=== PATIENT | female | born 1985 | race African-American/Black ===

== ENCOUNTER 2018-01-10 22:06 | Inpatient (IN) | payer OTHER ==
--- NOTE | 2018-01-10 22:15 | PDOC ---
History of Present Illness - General Chief Complaint: Asthma Stated Complaint: ASTHMA Time Seen by Provider: 01/10/18 22:11 - History of Present Illness Initial Comments: 32-year-old female with past medical history of asthma and well-controlled seizures presenting with shortness of breath. Patient reports that she was feeling dyspneic throughout the day, used her albuterol inhaler with minimal relief, and presented to the ED. Patient states that she has had multiple hospitalizations because of her asthma exacerbations and has been intubated once. Her last hospitalization for an asthma exacerbation was earlier this year where she spent one month in the hospital including nine days in the ICU. Patient states that she believes this asthma exacerbation feels worse than her usual ones, but not as bad as her worst. She usually gets allergy shots twice a month, but has not done so recently. Last seizure was more than five years ago. Patient denies fevers, chills, chest pain, or abdominal pain. Past History - Past Medical History Allergies/Adverse Reactions: Allergies Allergy/AdvReac Type Severity Reaction Status Date / Time Penicillins Allergy Verified 01/10/18 22:43 Home Medications: Ambulatory Orders Albuterol Sulfate Inhaler - [Ventolin Hfa Inhaler -] 1 - 2 inh PO Q4H 01/11/18 Budesonide/Formeterol Fumarate [SYMBICORT 80/4.5mcg -] 1 inh PO BID 01/11/18 Fluticasone Prop 0.05% Nasal [Flonase -] 1 - 2 spray NS DAILY 01/11/18 Omeprazole 20 mg PO DAILY 01/11/18 Tiotropium [place] [Spiriva Respimat] 4 gm IH DAILY 01/11/18 Review of Systems - Review of Systems Comments:: Constitutional: no fever, no chills HEENT: no throat pain, no dysphagia Cardiovascular: no chest pain, no palpitations Respiratory: no cough, +shortness of breath Gastrointestinal: no abdominal pain, no nausea, no vomiting Genitourinary: no dysuria, no frequency Musculoskeletal: no myalgia, no arthralgia Skin: no rash, no itching Neurologic: no headache, no dizziness *Physical Exam - Physical Exam Comments: General: Awake, alert, and fully oriented Head: No signs of trauma Eyes: EOMI, sclera anicteric ENT: Moist mucus membranes Neck: Normal ROM, supple Lungs: Diffuse wheezes present bilaterally; patient unable to complete full sentences without gasping for breath Cardio: Regular rhythm, S1 and S2 present Abdomen: Soft, nontender. No guarding, no rebound, no masses Extremities: Normal range of motion, Distal pulses present SKIN: Warm, Dry, normal turgor Neurologic: Cranial nerves II through XII grossly intact. Normal speech ED Treatment Course - LABORATORY CBC & Chemistry Diagram: 01/10/18 23:05 01/10/18 23:05 Medical Decision Making - Medical Decision Making 32-year-old female with past medical history of asthma and well-controlled seizures presenting with shortness of breath. -duonebs -steroids -labs 01/10/18 22:57 Patient with increased work of breathing, worsening into respiratory distress. Moved to room 10. Given racemic epi, salumedrol, mag, terbutaline Respiratory called to place the patient on bipap 01/10/18 23:49 Patient on bipap, at first appeared more comfortable, but now weakened from work of breathing 01/11/18 01:42 Discussed with patient the benefits and risks of intubation; patient voiced understanding that intubation may be a possibility and is amenable if it becomes necessary 01/11/18 02:20 Microblogged hospitalist who recommended admission to the ICU 01/11/18 02:43 Dr. Childers discussed case with ICU who accepted patient for admission *DC/Admit/Observation/Transfer Diagnosis at time of Disposition: Asthma exacerbation Qualifiers: Asthma severity: moderate Asthma persistence: persistent Qualified Code(s): J45.41 - Moderate persistent asthma with (acute) exacerbation - Discharge Dispostion Condition at time of disposition: Guarded Decision to Admit order: Yes - Referrals - Patient Instructions - Post Discharge Activity
[2018-01-10] MEDS ORDERED: ALBUTEROL SO4 2.5/IPRATROPIUM 0.5 INH SOL 3 ML VIAL.NEB. NEB ONE ×3 (22:28→23:40)
--- NOTE | 2018-01-10 22:32 | PDOC ---
Attending Attestation - HPI HPI: 01/10/18 23:29 The patient is a 32 year old female with a significant PMH of asthma (intubated in the past) who presents to the emergency department with shortness of breath since earlier today . the patient reports that she was at home today when she felt an onset of shortness of breath secondary to an asthma exacerbation . she states that she has had episodes like this in the past and has been hospitalized. The patient states that she has been taking her albuterol inhaler and treatments at home with no apparent relief. She states that she has some trigger such as allergies but is unaware of what brought on her episode today. The patient denies any other symptoms. She denies any fever, chills, nausea, vomiting, diarrhea, constipation, or any urinary symptoms. She denies any chest pain, headache or dizziness. The patient denies any other complaints . PCP: Dr. Powers Documentation prepared by Aneesh Puentes, acting as medical office technologist for Ade Childers MD. - Physicial Exam PE: 01/10/18 23:49 GENERAL: (+)unable to speak in full sentences secondary to condition. Awake, alert, and fully oriented, in no acute distress HEAD: No signs of trauma EYES: PERRLA, EOMI, sclera anicteric, conjunctiva clear ENT: Auricles normal inspection, hearing grossly normal, nares patent, oropharynx clear without exudates. Moist mucosa NECK: Normal ROM, supple, no lymphadenopathy, JVD, or masses LUNGS: (+)diffuse bilateral wheezing , extremely tight. No crackles. HEART: Regular rate and rhythm, normal S1 and S2, no murmurs, rubs or gallops ABDOMEN: Soft, nontender, normoactive bowel sounds. No guarding, no rebound. No masses EXTREMITIES: Normal range of motion, no edema. No clubbing or cyanosis. No cords, erythema, or tenderness NEUROLOGICAL: Cranial nerves II through XII grossly intact. Normal speech, normal gait SKIN: Warm, Dry, normal turgor, no rashes or lesions noted. Documentation prepared by Aneesh Puentes, acting as medical office technologist for Ade Childers MD. <Aneesh Puentes - Last Filed: 01/10/18 23:49> - Resident Resident Name: Shaye Butler - ED Attending Attestation I have performed the following: I have examined & evaluated the patient, The case was reviewed & discussed with the resident, I agree w/resident's findings & plan - Medical Decision Making 01/11/18 01:55 Pt is very slow to improve. She was given 3 duonebs in the ER as well as 60 PO prednisone, and suddnely she became worse. We moved her to room 10 and gave her racemic epi, as well as another duoneb. She received 2 mg Mag sulfate, terbutaline 0.25 SQ (which was repeated 1 hr later) And pt received 125mg solumedrol. BiPAP was placed. Pt is still very tight. Family has no idea what makes her asthma worse. Pt states that she gets allergy shots every 2 weeks and that she missed a dose of shots. 01/11/18 02:02 lungs are still very tight 01/11/18 03:35 Pt admitted to the hospitalists; pt will be admitted to the ICU, as she is tight and she is on BiPAP, and they want to keep a close eye on her. <Ade Childers - Last Filed: 01/11/18 03:36> Heart Score/ECG Review - ECG Intrepretation Rhythm: Regular Rhythm (sinus tachycardia) - [place]: Normal - ECG Impressions Normal ECG: Yes Non-specific ST Elevation: No Ischemic Changes: No Tachycardia: Sinus <Ade Childers - Last Filed: 01/11/18 03:36>
[2018-01-10] MEDS ORDERED: predniSONE 20 MG TABLET (UD) PO ONE (22:47)
[2018-01-10] MEDS ORDERED: predniSONE 20 MG TABLET (UD) ONE (23:11)
[2018-01-10 23:12] LABS: BASO % 0.8 % (0-2.0); EOS % 0.3 % (0-4.5); HEMATOCRIT 39.5 % (32.4-45.2); HEMOGLOBIN 12.9 GM/dL (10.7-15.3); LYMPH % 37.7 % (8-40); MCH 27.2 pg (25.7-33.7); MCHC 32.7 g/dl (32.0-36.0); MEAN CELL VOLUME 83.2 fl (80-96); MEAN PLT VOLUME 7.8 fl (7.5-11.1); MONO % 4.5 % (3.8-10.2); NEUT % 56.7 % (42.8-82.8); PLATELET COUNT 319 K/MM3 (134-434); RBC 4.74 M/mm3 (3.60-5.2); RDW 13.9 % (11.6-15.6); WHITE BLOOD COUNT 9.5 K/mm3 (4.0-10.0)
[2018-01-10] MEDS ORDERED: methylPREDNISolone NA SUCC 125 MG/2 ML VIAL IVPB ONE (23:38)
[2018-01-10 23:39] LABS: ALBUMIN 3.7 g/dl (3.4-5.0); ALK PHOS 76 U/L (45-117); ANION GAP 8 MMOL/L (8-16); BILIRUBIN,TOTAL 0.2 mg/dL (0.2-1); BLOOD UREA NITROGEN 11 mg/dL (7-18); CALCIUM 8.9 mg/dL (8.5-10.1); CHLORIDE 103 mmol/L (98-107); CO2 30 mmol/L (22-28); GLUCOSE,RANDOM 116 mg/dL (74-106); MAGNESIUM 2.1 mg/dL (1.8-2.4); POTASSIUM 4.1 mmol/L (3.5-5.1); SGOT/AST 14 U/L (15-37); SGPT/ALT 23 U/L (13-61); SODIUM 140 mmol/L (136-145); TOT PROT 7.2 g/dl (6.4-8.2)
[2018-01-10] MEDS ORDERED: RACEPINEPHRINE IH SOL 2.25% 11.25 MG/0.5 ML VIAL IH ONE (23:39)
[2018-01-10] MEDS ORDERED: MAGNESIUM SULF 50% (8.12 MEQ/2 ML-1 GM VIAL) IVPB ONE (23:39)
[2018-01-10] MEDS ORDERED: RACEPINEPHRINE IH SOL 2.25% 11.25 MG/0.5 ML VIAL NEB ONE (23:41)
[2018-01-10] MEDS ORDERED: MAGNESIUM 1GM/D5W - 2 GM/200 ML IVPB IVPB ONE (23:44)
[2018-01-10] MEDS ORDERED: methylPREDNISolone NA SUCC 125 MG/2 ML VIAL ONE (23:44)
[2018-01-10] MEDS ORDERED: TERBUTALINE SULFATE 1 MG/1 ML VIAL SQ ONE (23:55)
[2018-01-11] MEDS ORDERED: TERBUTALINE SULFATE 1 MG/1 ML VIAL SQ ONE ×3 (00:04→02:36)
--- NOTE | 2018-01-11 02:32 | PN ---
Teaching Attending Note Name of Resident: Teddy Rodriguez ATTENDING PHYSICIAN STATEMENT I saw and evaluated the patient. I reviewed the resident's note and discussed the case with the resident. I agree with the resident's findings and plan as documented. SUBJECTIVE: Patient is a 32 year old woman with PMH of asthma, penicillin allergy and well- controlled seizures presenting with shortness of breath. Patient reports that she was feeling dyspneic throughout the day used her albuterol inhaler with minimal relief and presented to the ER. Patient states that she has had multiple hospitalizations because of her asthma exacerbation and has been intubated once. Her last hospitalization for an asthma exacerbation was earlier this year where she spent one month in the hospital including nine days in the ICU. Patient states that she believes this asthma exacerbation feels worse than her usual ones, but not as bad as her worst. Last seizure was more than five years ago. Patient denies fevers, chills, chest pain, or abdominal pain. Completed a course of Z-Pack 2 weeks ago for URI. 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 LMP was Dec 06, 2017. OBJECTIVE: Alert Vital Signs Period Temp Pulse Resp BP Sys/[place] Pulse Ox Last 24 Hr 98.8 F 95 20 134/81 100-100 HEENT: No Jaundice, eye redness or discharge, PERRLA, EOMI. Normocephalic, atraumatic. External ears are normal and hearing is grossly intact. No nasal discharge. Neck: Supple, nontender. No palpable adenopathy or thyromegaly. No JVD Chest: Good effort. Diffuse wheezing. Heart: Regular. No S3, rub or murmur Abdomen: Not distended, soft, nontender and no HSM. No rebound or guarding. Normoactive bowel sounds. Ext: Peripheral pulses intact. No leg edema. Skin: Warm and dry. No petechiae, rash or ecchymosis. Neuro: Alert. Oriented x3. CN 2-12 grossly intact. Sensation grossly intact in all four extremities and DTR are symmetric. Abnormal Lab Results 01/10/18 23:05 Carbon Dioxide 30 H Random Glucose 116 H AST 14 L ASSESSMENT AND PLAN: 1. Acute Asthma Exacerbation - May have been precipitated by recent URI. Continue Bipap, Duoneb, solumedrol and symbicort. Got MgSO4 and terbutaline in the ER. Get ABG and CXR stat. Get EKG. Consult Pulmonary. Being admitted to the ICU. 2. Obesity - Will provide patient all the necessary assistance, counseling and positive reinforcement to facilitate weight loss. Consult shank sander. 3. DVT prophylaxis - Lovenox 40 mg SQ q 12 hours. 4. Advance directives - Full code
--- NOTE | 2018-01-11 02:44 | HP ---
CHIEF COMPLAINT: Shortness of breath. PCP: HISTORY OF PRESENT ILLNESS: 32 yo F with PMHx of asthma and seizures presenting with shortness of breath. Patient reports that she was feeling dyspneic throughout the day used her albuterol inhaler with minimal relief and presented to the ED. Patient states that she has had multiple hospitalizations because of her asthma exacerbation and has been intubated once. She had URI approx 2 weeks prior and completed a course of Azithromycin. Her last hospitalization for an asthma exacerbation was earlier this year where she spent one month in the hospital including nine days in the ICU. Patient states that she believes this asthma exacerbation feels worse than her usual ones, but not as bad as her worst. Last seizure was more than five years ago stopped her Keppra on her own . Patient denies fevers, chills, chest pain, or abdominal pain. ER course was notable for: (1)Duonebs and Mg given with some relief (2)Placed on Bipap (3)CXR Recent Travel: denies PAST MEDICAL HISTORY:asthma ,seizure disorder. PAST SURGICAL HISTORY:cholecystectomy. Social History: Smoking:denies Alcohol:denies Drugs: denies Family History: family history of blood clots. Allergies Penicillins Allergy (Verified 01/10/18 22:43) HOME MEDICATIONS: REVIEW OF SYSTEMS CONSTITUTIONAL: Absent: fever, chills, diaphoresis, generalized weakness, malaise, loss of appetite, weight change HEENT: Absent: rhinorrhea, nasal congestion, throat pain, throat swelling, difficulty swallowing, mouth swelling, ear pain, eye pain, visual changes CARDIOVASCULAR: Absent: chest pain, syncope, palpitations, irregular heart rate, lightheadedness , peripheral edema RESPIRATORY: cough, shortness of breath, dyspnea with exertion, Absent: orthopnea, wheezing, stridor, hemoptysis GASTROINTESTINAL: Absent: abdominal pain, abdominal distension, nausea, vomiting, diarrhea, constipation, melena, hematochezia GENITOURINARY: Absent: dysuria, frequency, urgency, hesitancy, hematuria, flank pain, genital pain MUSCULOSKELETAL: Absent: myalgia, arthralgia, joint swelling, back pain, neck pain SKIN: Absent: rash, itching, pallor HEMATOLOGIC/IMMUNOLOGIC: Absent: easy bleeding, easy bruising, lymphadenopathy, frequent infections ENDOCRINE: Absent: unexplained weight gain, unexplained weight loss, heat intolerance, cold intolerance NEUROLOGIC: Absent: headache, focal weakness or paresthesias, dizziness, unsteady gait, seizure, mental status changes, bladder or bowel incontinence PSYCHIATRIC: Absent: anxiety, depression, suicidal or homicidal ideation, hallucinations. PHYSICAL EXAMINATION Vital Signs - 24 hr 01/10/18 01/10/18 01/11/18 22:34 22:35 00:15 Temperature 98.8 F Pulse Rate 95 H 104 H Respiratory 20 Rate Blood Pressure 134/81 O2 Sat by Pulse 100 100 100 Oximetry (%) GENERAL: AAOx3, mild distress, able to speak in full sentences. HEAD: NCAT EYES: PERRLA,EOMI, sclera anicteric, conjunctiva clear. No lid lag. EARS, NOSE, THROAT: dry mucous membranes. NECK: Supple without lymphadenopathy, JVD, or masses. LUNGS: diminished breath sounds bilat. Scattered wheezing. No accessory muscle use. HEART: tachycardic, normal S1 and S2 without murmur, rub or gallop. ABDOMEN: Soft,obese, nontender, not distended, normoactive bowel sounds, no guarding, no rebound, no masses. No hepatomegaly or splenomegaly. MUSCULOSKELETAL: Normal range of motion at all joints. No bony deformities or tenderness. No CVA tenderness. UPPER EXTREMITIES: 2+ pulses, warm, well-perfused. No cyanosis. No clubbing. No peripheral edema. LOWER EXTREMITIES: 2+ pulses, warm, well-perfused. No calf tenderness. No peripheral edema. NEUROLOGICAL: Cranial nerves II-XII intact. Normal speech. SKIN: Warm, dry, normal turgor, no rashes or lesions noted, normal capillary refill. Laboratory Results - last 24 hr 01/10/18 01/10/18 01/10/18 23:05 23:05 23:05 WBC 9.5 RBC 4.74 Hgb 12.9 Hct 39.5 MCV 83.2 MCH 27.2 MCHC 32.7 RDW 13.9 Plt Count 319 MPV 7.8 Absolute Neuts (auto) 5.4 Neutrophils % 56.7 Lymphocytes % 37.7 Monocytes % 4.5 Eosinophils % 0.3 Basophils % 0.8 Nucleated RBC % 0 Sodium 140 Potassium 4.1 Chloride 103 Carbon Dioxide 30 H Anion Gap 8 BUN 11 Creatinine 1.0 Creat Clearance w eGFR > 60 Random Glucose 116 H Calcium 8.9 Magnesium 2.1 Total Bilirubin 0.2 AST 14 L ALT 23 Alkaline Phosphatase 76 Total Protein 7.2 Albumin 3.7 Beta HCG, Quant < 1.0 ASSESSMENT/PLAN: 32 yo F with PMHx of asthma and seizure disorder presents with SOB admitted to ICU for acute asthma exacerbation. Problem List - Problem (1) Asthma exacerbation Assessment/Plan: * Admit to ICU * Pulm consult * Duonebs standing * Albuterol PRN * Solumedrol 40mg Q6H * Bipap PRN * Supplemental O2 PRN maintain SpO2>90% * peak flow daily. * ABG in AM (2) Seizure disorder Assessment/Plan: was on keppra * stopped on her own over a year ago * followed by Dr. Pizano (3) DVT prophylaxis Assessment/Plan: lovenox 40 mg SQ Visit type - Emergency Visit Emergency Visit: Yes ED Registration Date: 01/11/18 Care time: The patient presented to the Emergency Department on the above date and was hospitalized for further evaluation of their emergent condition. - New Patient This patient is new to me today: Yes Date on this admission: 01/13/18 - Critical Care Critical Care patient: Yes Total Critical Care Time (in minutes): 42 Critical Care Statement: The care of this patient involved high complexity decision making to prevent further life threatening deterioration of the patient 's condition and/or to evaluate & treat vital organ system(s) failure or risk of failure.
[2018-01-11] MEDS: methylPREDNISolone NA SUCC 40 MG/1 ML VIAL IVPUSH SCH ×5 (03:30→21:22)
--- NOTE | 2018-01-11 03:47 | CONSULT ---
Consultation: REQUESTING PROVIDER: CONSULT REQUEST: We have been asked to medically evaluate this patient for asthma exacerbation HISTORY OF PRESENT ILLNESS: 32 yo F w/ PMH asthma and well-controlled seizures (used to be on keppra) p/w SOB x 3d. Patient reports that she was feeling dyspneic w/ chest tightness throughout the day and used her albuterol inhaler multiple times with minimal relief. Patient states that she has had multiple hospitalizations because of her asthma exacerbation and has been intubated once. Her last hospitalization for an asthma exacerbation was earlier this year where she spent one month in the hospital including nine days in the ICU. Patient states that she believes this asthma exacerbation feels worse than her usual ones, but not as bad as her worst. Of note, pt endorse cough for the past 2 weeks and was tx w/ Z-pack. Last seizure was more than five years ago. Patient denies fevers, chills, abdominal pain, n/v/d, blurry vision, recent travel, OCP use, recent travel. Family has no idea what makes her asthma worse. Pt states that she gets allergy shots every 2 weeks and that she missed a dose of shots. In the ED, was given 4 duonebs, 60 PO prednisone, racemic epi, 2 mg Mag sulfate , terbutaline 0.25 SQ (which was repeated 1 hr later) and 125mg solumedrol. BiPAP was placed. Pt is still very tight. REVIEW OF SYSTEMS: as per HPI PHYSICAL EXAMINATION Vital Signs - 24 hr 01/10/18 01/10/18 01/11/18 22:34 22:35 00:15 Temperature 98.8 F Pulse Rate 95 H 104 H Respiratory 20 Rate Blood Pressure 134/81 O2 Sat by Pulse 100 100 100 Oximetry (%) 01/11/18 00:37 Temperature Pulse Rate 100 H Respiratory Rate Blood Pressure O2 Sat by Pulse 100 Oximetry (%) GENERAL: AOX3 mild distress on bipap Heent: NCAT sclera anicteric, conjunctiva clear. No lid lag. NECK: Normal range of motion, supple without lymphadenopathy, JVD, or masses. LUNGS: severe WHEEZing b/l, poor effort HEART: tachy Regular rhythm, normal S1 and S2 without murmur, rub or gallop. ABDOMEN: Soft, NTND, normoactive bowel sounds, no guarding, no rebound, no masses. MUSCULOSKELETAL: Normal range of motion at all joints. No bony deformities or tenderness. UPPER EXTREMITIES: 2+ pulses, warm, well-perfused. No cyanosis. No clubbing. Cap refill <2 seconds. No peripheral edema. LOWER EXTREMITIES: 2+ pulses, warm, well-perfused. No calf tenderness. No peripheral edema. NEUROLOGICAL: Cranial nerves II-XII intact. Normal speech. PSYCHIATRIC: Cooperative. Good eye contact. Appropriate mood and affect. SKIN: Warm, dry, normal turgor, no rashes or lesions noted. Laboratory Results - last 24 hr 01/10/18 01/10/18 01/10/18 23:05 23:05 23:05 WBC 9.5 RBC 4.74 Hgb 12.9 Hct 39.5 MCV 83.2 MCH 27.2 MCHC 32.7 RDW 13.9 Plt Count 319 MPV 7.8 Absolute Neuts (auto) 5.4 Neutrophils % 56.7 Lymphocytes % 37.7 Monocytes % 4.5 Eosinophils % 0.3 Basophils % 0.8 Nucleated RBC % 0 Sodium 140 Potassium 4.1 Chloride 103 Carbon Dioxide 30 H Anion Gap 8 BUN 11 Creatinine 1.0 Creat Clearance w eGFR > 60 Random Glucose 116 H Calcium 8.9 Magnesium 2.1 Total Bilirubin 0.2 AST 14 L ALT 23 Alkaline Phosphatase 76 Total Protein 7.2 Albumin 3.7 Beta HCG, Quant < 1.0 Active Medications Generic Name Dose Route Start Last Admin Trade Name Freq PRN Reason Stop Dose Admin Albuterol Sulfate 1 amp 01/11/18 02:40 Ventolin 0.083% Nebulizer Soln - NEB Q4H PRN SHORT OF BREATH/WHEEZING Albuterol/Ipratropium 1 amp 01/11/18 08:00 Duoneb - NEB RQID ZACH Chlorhexidine Gluconate 1 applic 01/11/18 22:00 Hibiclens For Decolonization - TP HS ZACH Enoxaparin Sodium 40 mg 01/11/18 10:00 Lovenox - SQ DAILY ZACH Methylprednisolone Sodium Succinate 40 mg 01/11/18 03:00 Solu-Medrol - IVPUSH Q6H-IV ZACH Mupirocin 1 applic 01/11/18 10:00 Bactroban Ointment (For Decolonization) - NS 01/16/18 09:59 BID ZACH ASSESSMENT/PLAN: 32 yo F w/ PMH asthma and well-controlled seizures (used to be on keppra) p/w asthma exacerbation requiring ICU monitoring for low threshold for intubation NEURO intact, no acute issues hx seizures not on Keppra anymore, pt stopped taking on her own about 1 yr ago, f/w Dr Jerica QUISPE Asthma unctl, has been intubated before and has had ICU admissions in the past low threshold for intubation In the ED, 4 duonebs, 60 PO prednisone, racemic epi, 2 mg Mag sulfate, terbutaline 0.25 SQ (which was repeated 1 hr later) and 125mg solumedrol. c/w solumedrol, duonebs, albuterol no indication for abx at this time on bipap w/ slow improvement, continue to monitor maintain O2 >90% ABG am f/u CXR Cardio tachy BP stable maintain MAP>65 cardiac monitoring Qtc 503, avoid prolonging meds EKG NS tachy, w/o signs of ischemia ID afebrile, no leukocytosis infx etiology unlikely no indication for abx at this time FEN no IVF at this time replete prn Regular diet as tolerated ppx lovenox 40 qd Dispo: ICU monitoring for low threshold for intubation We will continue to follow the patient. Thank you for this consultative opportunity. Visit type - Emergency Visit Emergency Visit: Yes Care time: The patient presented to the Emergency Department on the above date and was hospitalized for further evaluation of their emergent condition. - New Patient This patient is new to me today: Yes Date on this admission: 01/11/18 - Critical Care Critical Care patient: Yes Total Critical Care Time (in minutes): 38 Critical Care Statement: The care of this patient involved high complexity decision making to prevent further life threatening deterioration of the patient 's condition and/or to evaluate & treat vital organ system(s) failure or risk of failure.
[2018-01-11] MEDS: ALBUTEROL SO4 0.083% IH SOL 2.5 MG/3 ML VIAL.NEB. NEB PRN ×2 (04:13→23:13)
[2018-01-11 06:27] LABS: ARTERIAL BLD GAS O2 SATURATION 99.6 % (90-98.9); ARTERIAL BLOOD GAS BASE EXCESS -3.5 meq/l (-2-2); ARTERIAL BLOOD GAS PCO2 39.2 mmHg (35-45); ARTERIAL BLOOD GAS pH 7.35 (7.35-7.45)
[2018-01-11 06:39] LABS: MAGNESIUM 2.2 mg/dL (1.8-2.4); PHOSPHOROUS 2.4 mg/dL (2.5-4.9)
[2018-01-11 07:10] VITALS: BMI 30.3
[2018-01-11 07:20] LABS: ALLENS TEST POSITIVE
[2018-01-11] MEDS ORDERED: POTASSIUM PHOSPHATE 15 MM in DEXTROSE 5%-WATER - 250 ML IVPB ONE (07:45)
[2018-01-11] MEDS: ALBUTEROL SO4 2.5/IPRATROPIUM 0.5 INH SOL 3 ML VIAL.NEB. NEB SCH ×4 (08:15→19:45)
[2018-01-11] MEDS ORDERED: ALBUTEROL SO4 2.5/IPRATROPIUM 0.5 INH SOL 3 ML VIAL.NEB. NEB ONE (08:15)
[2018-01-11] MEDS: ENOXAPARIN NA (PORCINE) 40 MG/0.4 ML DISP.SYRIN SQ SCH ×2 (09:35→12:22)
[2018-01-11] MEDS: MUPIROCIN 2% TOPICAL OINTMENT FOR DECOLONIZATION NS SCH (10:30)
--- NOTE | 2018-01-11 10:36 | PN ---
Teaching Attending Note Name of Resident: Ramone Weller ATTENDING PHYSICIAN STATEMENT I saw and evaluated the patient. I reviewed the resident's note and discussed the case with the resident. I agree with the resident's findings and plan as documented. SUBJECTIVE: Patient seen and examined in the ICU. Awake and alert. Remains mildly tachyneic in Fowlers position on NIPPV. Still with Chest tightness and wheeze but less than on admission. Intake & Output 01/08/18 01/09/18 01/10/18 01/11/18 23:59 23:59 23:59 23:59 Output Total 300 Balance -300 Weight 458 lb 8.984 oz 188 lb Last Vital Signs Temp Pulse Resp BP Pulse Ox 97.8 F 98 H 20 121/71 100 01/11/18 10:00 01/11/18 10:00 01/11/18 10:00 01/11/18 10:00 01/11/18 09:51 Active Medications Albuterol Sulfate (Ventolin 0.083% Nebulizer Soln -) 1 amp NEB Q4H PRN PRN Reason: SHORT OF BREATH/WHEEZING Last Admin: 01/11/18 04:13 Dose: 1 amp Albuterol/Ipratropium (Duoneb -) 1 amp NEB RQID ZACH Last Admin: 01/11/18 08:15 Dose: 1 amp Chlorhexidine Gluconate (Hibiclens For Decolonization -) 1 applic TP HS ZACH Enoxaparin Sodium (Lovenox -) 40 mg SQ DAILY ZACH Potassium Phosphate 15 mm/ (Dextrose) 255 mls @ 62.5 mls/hr IVPB ONCE ONE Stop: 01/11/18 11:49 Last Admin: 01/11/18 08:28 Dose: 62.5 mls/hr Methylprednisolone Sodium Succinate (Solu-Medrol -) 80 mg IVPUSH Q6H-IV ZACH Last Admin: 01/11/18 09:35 Dose: 80 mg Montelukast Sodium (Singulair -) 10 mg PO HS ZACH Mupirocin (Bactroban Ointment (For Decolonization) -) 1 applic NS BID ZACH Stop: 01/16/18 09:59 GENERAL: AOX3 mildly tachypneic on NIPPV Heent: NCAT sclera anicteric, conjunctiva clear. No lid lag. NECK: Normal range of motion, supple without lymphadenopathy, JVD, or masses. LUNGS: Bilateral mild to moderate expiratory wheeze, few rhonchi HEART: S1 and S2 without murmur, rub or gallop. ABDOMEN: Soft, NTND, normoactive bowel sounds, no guarding, no rebound, no masses. MUSCULOSKELETAL: Normal range of motion at all joints. No bony deformities or tenderness. UPPER EXTREMITIES: 2+ pulses, warm, well-perfused. No cyanosis. No clubbing. Cap refill <2 seconds. No peripheral edema. LOWER EXTREMITIES: 2+ pulses, warm, well-perfused. No calf tenderness. No peripheral edema. NEUROLOGICAL: Non-focal PSYCHIATRIC: Cooperative. Good eye contact. Appropriate mood and affect. SKIN: Warm, dry, normal turgor, no rashes or lesions noted. Laboratory Results - last 24 hr 01/10/18 01/10/18 01/10/18 23:05 23:05 23:05 WBC 9.5 RBC 4.74 Hgb 12.9 Hct 39.5 MCV 83.2 MCH 27.2 MCHC 32.7 RDW 13.9 Plt Count 319 MPV 7.8 Absolute Neuts (auto) 5.4 Neutrophils % 56.7 Lymphocytes % 37.7 Monocytes % 4.5 Eosinophils % 0.3 Basophils % 0.8 Nucleated RBC % 0 Puncture Site ABG pH ABG pCO2 at Pt Temp ABG pO2 at Pt Temp ABG HCO3 ABG O2 Sat (Measured) ABG O2 Content ABG Base Excess Reynaldo Test O2 Delivery Device Oxygen Flow Rate Vent Mode Vent Rate Mechanical Rate PEEP Pressure Support Vent Sodium 140 Potassium 4.1 Chloride 103 Carbon Dioxide 30 H Anion Gap 8 BUN 11 Creatinine 1.0 Creat Clearance w eGFR > 60 Random Glucose 116 H Calcium 8.9 Phosphorus Magnesium 2.1 Total Bilirubin 0.2 AST 14 L ALT 23 Alkaline Phosphatase 76 Total Protein 7.2 Albumin 3.7 Beta HCG, Quant < 1.0 01/11/18 01/11/18 05:30 06:10 WBC RBC Hgb Hct MCV MCH MCHC RDW Plt Count MPV Absolute Neuts (auto) Neutrophils % Lymphocytes % Monocytes % Eosinophils % Basophils % Nucleated RBC % Puncture Site Right radial ABG pH 7.35 ABG pCO2 at Pt Temp 39.2 ABG pO2 at Pt Temp 300.0 H* ABG HCO3 21.2 L ABG O2 Sat (Measured) 99.6 H* ABG O2 Content 20.7 ABG Base Excess -3.5 L Reynaldo Test Positive O2 Delivery Device Bipap Oxygen Flow Rate 60% Vent Mode S/t Vent Rate 12 Mechanical Rate Bipap PEEP 0.0 Pressure Support Vent 10/5 Sodium Potassium Chloride Carbon Dioxide Anion Gap BUN Creatinine Creat Clearance w eGFR Random Glucose Calcium Phosphorus 2.4 L Magnesium 2.2 Total Bilirubin AST ALT Alkaline Phosphatase Total Protein Albumin Beta HCG, Quant ASSESSMENT/PLAN: Acute Respiratory Failure due to AE of Asthma Suspected Viral Infection Do not suspect PNA Seizures D/O Previous history of intubation Increase Medrol BD TX standing and PRN Epi for worsening of symptoms VTE prophylaxis Aspiration precautions ICU monitoring Dr Miranda Critical Care patient: Yes Total Critical Care Time (in minutes): 36 Critical Care Statement: The care of this patient involved high complexity decision making to prevent further life threatening deterioration of the patient 's condition and/or to evaluate & treat vital organ system(s) failure or risk of failure.
[2018-01-11] MEDS ORDERED: POTASSIUM CHLORIDE TABS 20 MEQ TABLET.ER (FP) PO ONE (11:15)
[2018-01-11] MEDS ORDERED: NAPH,MB-DB/K PH,MBDB POWDER PACKET PO ONE (12:00)
--- NOTE | 2018-01-11 13:33 | PN ---
Physical Exam: SUBJECTIVE: Patient seen and examined at bedside. She seemed to be doing better than she was in the ED until she got up to walk to the bathroom. She instantly felt extreme fatigue, chest pain, difficulty breathing and like she was going to pass out. Her HR shot up to 150, RR to 38, and O2 sat dropped to 82. When she got back into the bed her vitals normalized after ~ 20 minutes. She is no longer tachypneic or tachycardic and has a respiratory rate of 18. She is sitting up in the bed eating and drinking. She has a URI which is likely the cause of her asthma exacerbation. She has been sneezing non-stop, as well as feeling congested. OBJECTIVE: Vital Signs Period Temp Pulse Resp BP Sys/Lawson Pulse Ox Last 24 Hr 97.8 F-98.8 F 95-130 12-28 108-139/64-92 99-100 GENERAL: The patient is on BiPAP, awake, alert, and fully oriented, in significant respiratory distress. HEAD: NC/AT EYES: PERRLA, EOMI, conjunctiva clear. ENT: Oropharynx is erythematous without exudates, ears normal, nares patent, moist mucous membranes. NECK: Trachea midline, full range of motion, supple. LUNGS: Diffuse expiratory wheezes. No crackles, rales, rhonchi. HEART: tachycardic rate and regular rhythm, S1, S2 without murmur, rub or gallop. ABDOMEN: Soft, nontender, nondistended, normoactive bowel sounds, no guarding, no rebound, no hepatosplenomegaly, no masses. EXTREMITIES: 2+ pulses, warm, well-perfused, no edema. NEUROLOGICAL: Cranial nerves II through XII grossly intact. labored speech. Gait not stable. PSYCH: Patient is tearing from respiratory distress. SKIN: Warm, dry, normal turgor, no rashes or lesions noted Laboratory Results - last 24 hr 01/10/18 01/10/18 01/10/18 23:05 23:05 23:05 WBC 9.5 RBC 4.74 Hgb 12.9 Hct 39.5 MCV 83.2 MCH 27.2 MCHC 32.7 RDW 13.9 Plt Count 319 MPV 7.8 Absolute Neuts (auto) 5.4 Neutrophils % 56.7 Lymphocytes % 37.7 Monocytes % 4.5 Eosinophils % 0.3 Basophils % 0.8 Nucleated RBC % 0 Puncture Site ABG pH ABG pCO2 at Pt Temp ABG pO2 at Pt Temp ABG HCO3 ABG O2 Sat (Measured) ABG O2 Content ABG Base Excess Reynaldo Test O2 Delivery Device Oxygen Flow Rate Vent Mode Vent Rate Mechanical Rate PEEP Pressure Support Vent Sodium 140 Potassium 4.1 Chloride 103 Carbon Dioxide 30 H Anion Gap 8 BUN 11 Creatinine 1.0 Creat Clearance w eGFR > 60 Random Glucose 116 H Calcium 8.9 Phosphorus Magnesium 2.1 Total Bilirubin 0.2 AST 14 L ALT 23 Alkaline Phosphatase 76 Total Protein 7.2 Albumin 3.7 Beta HCG, Quant < 1.0 01/11/18 01/11/18 05:30 06:10 WBC RBC Hgb Hct MCV MCH MCHC RDW Plt Count MPV Absolute Neuts (auto) Neutrophils % Lymphocytes % Monocytes % Eosinophils % Basophils % Nucleated RBC % Puncture Site Right radial ABG pH 7.35 ABG pCO2 at Pt Temp 39.2 ABG pO2 at Pt Temp 300.0 H* ABG HCO3 21.2 L ABG O2 Sat (Measured) 99.6 H* ABG O2 Content 20.7 ABG Base Excess -3.5 L Reynaldo Test Positive O2 Delivery Device Bipap Oxygen Flow Rate 60% Vent Mode S/t Vent Rate 12 Mechanical Rate Bipap PEEP 0.0 Pressure Support Vent 10/5 Sodium Potassium Chloride Carbon Dioxide Anion Gap BUN Creatinine Creat Clearance w eGFR Random Glucose Calcium Phosphorus 2.4 L Magnesium 2.2 Total Bilirubin AST ALT Alkaline Phosphatase Total Protein Albumin Beta HCG, Quant Active Medications Generic Name Dose Route Start Last Admin Trade Name Freq PRN Reason Stop Dose Admin Albuterol Sulfate 1 amp 01/11/18 02:40 01/11/18 04:13 Ventolin 0.083% Nebulizer Soln - NEB 1 amp Q4H PRN Administration SHORT OF BREATH/WHEEZING Albuterol/Ipratropium 1 amp 01/11/18 08:00 01/11/18 11:20 Duoneb - NEB 1 amp RQID ZACH Administration Chlorhexidine Gluconate 1 applic 01/11/18 22:00 Hibiclens For Decolonization - TP HS ZACH Enoxaparin Sodium 40 mg 01/11/18 10:00 01/11/18 12:22 Lovenox - SQ Not Given DAILY [facility] Methylprednisolone Sodium Succinate 80 mg 01/11/18 08:48 01/11/18 09:35 Solu-Medrol - IVPUSH 80 mg Q6H-IV ZACH Administration Montelukast Sodium 10 mg 01/11/18 22:00 Singulair - PO HS ZACH Mupirocin 1 applic 01/11/18 10:00 01/11/18 10:30 Bactroban Ointment (For Decolonization) - NS 01/16/18 09:59 1 applic BID ZACH Administration ASSESSMENT/PLAN: Assessment: 32 yo F w/ PMH asthma and well-controlled seizures (used to be on keppra) p/w asthma exacerbation requiring ICU monitoring for low threshold for intubation. The asthma exacerbation was likely triggered by a recent URI. She has required intubation for her asthma in the past as well as a 9 day ICU visit. She is currently satting well with vitals WNL on BiPAP. When she gets up to walk she becomes SOB, and cannot breathe. We are continuing duonebs, terbutaline, increasing her steroid dosage due to BMI , and have a very low threshold for epinephrine and intubation if not successful. Plan: Bipap, Albuterol, terbutaline, steroids, +/- Epi, +/- RSI. Pulm: - Stable on BiPAP. - RR: 18 - SpO2: 100% (60% FiO2 on BiPAP) - Diffuse expiratory wheezes bilaterally. Audible wheezes without stethoscope. - Daily ABG, CXR - Maintain SpO2 > 90% - CXR did not suggest infiltrate. Showed atelectasis. - Solumedrol 80 MG Q6H. - Albuterol Q4H + PRN - Singulair 10 MG PO Daily - Monteleukast 10 MG PO daily. - Terbutaline 0.25 MG SQ PRN Cardio: - Patient currently has a HR of 105, likely secondary to albuterol. - BP: 137/67 - Qtc 503: Avoid prolonging agents. Neuro: - No acute issues - Hx seizures - Not on Keppra anymore, pt stopped taking on her own about 1 yr ago, f/w Dr Pizano ID: - Afebrile, no leukocytosis - Patient is very congested and likely has a URI - This URI is likely triggering the Asthma exacerbation. - CXR did not show an infiltrate - low suspicion for PNA - No indication for abx at this time - Rapid flu sent: Negative. GI: - Patient is tolerating PO without any difficulty when she takes off the BiPAP - No acute issues F/E/N: - Patient is not receiving any standing fluid - She is tolerating PO well. - Low phosphorus of 2.4: Repleted. - Continue to monitor and replete lytes PRN. - Normal Diet, no restrictions. Prophylaxis: - Lovenox 40 sq daily Code Status: Full code Dispo: We will continue to monitor the patient in the ICU. Visit type - Emergency Visit Emergency Visit: Yes ED Registration Date: 01/11/18 Care time: The patient presented to the Emergency Department on the above date and was hospitalized for further evaluation of their emergent condition. - New Patient This patient is new to me today: Yes Date on this admission: 01/11/18 - Critical Care Critical Care patient: Yes Total Critical Care Time (in minutes): 36 Critical Care Statement: The care of this patient involved high complexity decision making to prevent further life threatening deterioration of the patient 's condition and/or to evaluate & treat vital organ system(s) failure or risk of failure.
[2018-01-11] MEDS ORDERED: ACETAMINOPHEN 325 MG TABLET (FP) ONE (16:52)
[2018-01-11] MEDS ORDERED: ACETAMINOPHEN 1000 MG/100 ML VIAL (NON FORMULARY) IVPB ONE (17:15)
[2018-01-11] MEDS ORDERED: IBUPROFEN 600 MG TABLET (FP) PO ONE (17:30)
--- NOTE | 2018-01-11 17:53 | HOSP ---
Subjective - Review of Symptoms Events since last encounter: Patient is in ICU on BIpap, unable to complete her sentence without being short of breath. No fever or chills, no headache, no nausea or vomiting. Vital Signs Temperature 97.4 F L 01/11/18 16:00 Pulse Rate 91 H 01/11/18 16:00 Respiratory Rate 20 01/11/18 16:00 Blood Pressure 111/81 01/11/18 16:00 O2 Sat by Pulse Oximetry (%) 100 01/11/18 16:58 GENERAL: AAOx3, moderate distress, unable to speak in full sentences. HEAD: NCAT; EYES: PERRLA,EOMI, sclera anicteric, conjunctiva clear. EARS, NOSE, THROAT: dry mucous membranes. NECK: Supple without lymphadenopathy, no JVD, or masses. LUNGS: decreased breath sounds BL; minimal Scattered wheezing bl, on Bipap HEART: tachycardic, normal S1 and S2 without murmur, rub or gallop. ABDOMEN: Soft,obese, nontender, not distended, normoactive bowel sounds, no guarding, no rebound, no masses. MUSCULOSKELETAL: Normal range of motion at all joints. No bony deformities or tenderness. No CVA tenderness. EXTREMITIES: 2+ pulses, warm, well-perfused. No cyanosis. No clubbing. No peripheral edema. NEUROLOGICAL: Cranial nerves II-XII intact. SKIN: Warm, dry, normal turgor, no rashes or lesions noted, normal capillary refill. CBCD WBC 9.5 K/mm3 (4.0-10.0) 01/10/18 23:05 RBC 4.74 M/mm3 (3.60-5.2) 01/10/18 23:05 Hgb 12.9 GM/dL (10.7-15.3) 01/10/18 23:05 Hct 39.5 % (32.4-45.2) 01/10/18 23:05 MCV 83.2 fl (80-96) 01/10/18 23:05 MCHC 32.7 g/dl (32.0-36.0) 01/10/18 23:05 RDW 13.9 % (11.6-15.6) 01/10/18 23:05 Plt Count 319 K/MM3 (134-434) 01/10/18 23:05 MPV 7.8 fl (7.5-11.1) 01/10/18 23:05 CMP Sodium 140 mmol/L (136-145) 01/10/18 23:05 Potassium 4.1 mmol/L (3.5-5.1) 01/10/18 23:05 Chloride 103 mmol/L (98-107) 01/10/18 23:05 Carbon Dioxide 30 mmol/L (22-28) H 01/10/18 23:05 Anion Gap 8 MMOL/L (8-16) 01/10/18 23:05 BUN 11 mg/dL (7-18) 01/10/18 23:05 Creatinine 1.0 mg/dL (0.55-1.3) 01/10/18 23:05 Creat Clearance w eGFR > 60 (>60) 01/10/18 23:05 Random Glucose 116 mg/dL (74-106) H 01/10/18 23:05 Calcium 8.9 mg/dL (8.5-10.1) 01/10/18 23:05 Total Bilirubin 0.2 mg/dL (0.2-1) 01/10/18 23:05 AST 14 U/L (15-37) L 01/10/18 23:05 ALT 23 U/L (13-61) 01/10/18 23:05 Alkaline Phosphatase 76 U/L (45-117) 01/10/18 23:05 Total Protein 7.2 g/dl (6.4-8.2) 01/10/18 23:05 Albumin 3.7 g/dl (3.4-5.0) 01/10/18 23:05 Current Medications Generic Name Dose Route Start Last Admin Trade Name Freq PRN Reason Stop Dose Admin Albuterol Sulfate 1 amp 01/11/18 02:40 01/11/18 04:13 Ventolin 0.083% Nebulizer Soln - NEB 1 amp Q4H PRN Administration SHORT OF BREATH/WHEEZING Albuterol/Ipratropium 1 amp 01/11/18 08:00 01/11/18 16:27 Duoneb - NEB 1 amp RQID ZACH Administration Chlorhexidine Gluconate 1 applic 01/11/18 22:00 Hibiclens For Decolonization - TP HS ZACH Enoxaparin Sodium 40 mg 01/11/18 10:00 01/11/18 12:22 Lovenox - SQ Not Given DAILY [facility] Methylprednisolone Sodium Succinate 80 mg 01/11/18 08:48 01/11/18 15:22 Solu-Medrol - IVPUSH 80 mg Q6H-IV ZACH Administration Montelukast Sodium 10 mg 01/11/18 22:00 Singulair - PO HS ZACH Mupirocin 1 applic 01/11/18 10:00 01/11/18 10:30 Bactroban Ointment (For Decolonization) - NS 01/16/18 09:59 1 applic BID ZACH Administration Home Medications Medication Instructions Recorded Albuterol Sulfate Inhaler - 1 - 2 inh PO Q4H 01/11/18 [Ventolin Hfa Inhaler -] Budesonide/Formeterol Fumarate 1 inh PO BID 01/11/18 [SYMBICORT 80/4.5mcg -] Fluticasone Prop 0.05% Nasal 1 - 2 spray NS DAILY 01/11/18 [Flonase -] Omeprazole 20 mg PO DAILY 01/11/18 Tiotropium Dodson [Spiriva 4 gm IH DAILY 01/11/18 Respimat] Assessment/Plan: Patient is a 32 yo F with PMHx of asthma and seizure disorder presents with SOB admitted to ICU for acute asthma exacerbation. # Acute Asthma exacerbation: # Seizure disorder has stopped keppra a year ago since was seizure free for 5 years. -in Icu, continue to monitor in ICU. -continue Duoneb, albuterol, Soumedrol 80mg q6h IV as per ICU team -continue Singulair DVT prophylaxis: lovenox 40 mg SQ Physical Examination Vital Signs: Vital Signs Temperature 97.4 F L 01/11/18 16:00 Pulse Rate 91 H 01/11/18 16:00 Respiratory Rate 20 01/11/18 16:00 Blood Pressure 111/81 01/11/18 16:00 O2 Sat by Pulse Oximetry (%) 100 01/11/18 16:58 Labs: CBC, BMP 01/10/18 23:05 01/10/18 23:05
[2018-01-11] MEDS: FLUTICASONE PROP 0.05% 16 GM NASAL SPRAY NS SCH (21:23)
[2018-01-11] MEDS: MONTELUKAST NA 10 MG TABLET PO SCH (21:23)
[2018-01-11] MEDS ORDERED: RANITIDINE HCL 150 MG TABLET (FP) PO ONE (21:29)
[2018-01-11] MEDS ORDERED: TERBUTALINE SULFATE 1 MG/1 ML VIAL SQ PRN (22:58)
[2018-01-12] MEDS: CHLORHEXIDINE GLUCONATE 4% CLEANSER FOR DECOLONIZATION TP SCH ×2 (01:20→21:55)
[2018-01-12] MEDS: MUPIROCIN 2% TOPICAL OINTMENT FOR DECOLONIZATION NS SCH ×3 (01:21→21:54)
[2018-01-12] MEDS: methylPREDNISolone NA SUCC 40 MG/1 ML VIAL IVPUSH SCH ×4 (02:01→21:47)
[2018-01-12 06:38] LABS: BASO % 0.2 % (0-2.0); HEMATOCRIT 38.7 % (32.4-45.2); HEMOGLOBIN 12.5 GM/dL (10.7-15.3); LYMPH % 9.5 % (8-40); MCH 26.8 pg (25.7-33.7); MCHC 32.4 g/dl (32.0-36.0); MEAN CELL VOLUME 82.6 fl (80-96); MONO % 2.2 % (3.8-10.2); NEUT % 88.1 % (42.8-82.8); PLATELET COUNT 336 K/MM3 (134-434); RBC 4.69 M/mm3 (3.60-5.2); RDW 13.8 % (11.6-15.6); WHITE BLOOD COUNT 16.6 K/mm3 (4.0-10.0)
[2018-01-12] MEDS ORDERED: TERBUTALINE SULFATE 1 MG/1 ML VIAL SQ PRN (07:11)
[2018-01-12 07:26] LABS: ALBUMIN 3.5 g/dl (3.4-5.0); ALK PHOS 73 U/L (45-117); ANION GAP 7 MMOL/L (8-16); BILIRUBIN,TOTAL 0.2 mg/dL (0.2-1); BLOOD UREA NITROGEN 10 mg/dL (7-18); CHLORIDE 105 mmol/L (98-107); CO2 25 mmol/L (21-32); CREATININE 0.6 mg/dL (0.55-1.3); GLUCOSE,RANDOM 166 mg/dL (74-106); MAGNESIUM 2.7 mg/dL (1.8-2.4); PHOSPHOROUS 2.8 mg/dL (2.5-4.9); POTASSIUM 4.6 mmol/L (3.5-5.1); SGOT/AST 13 U/L (15-37); SGPT/ALT 21 U/L (13-61); SODIUM 137 mmol/L (136-145)
[2018-01-12] MEDS: ALBUTEROL SO4 2.5/IPRATROPIUM 0.5 INH SOL 3 ML VIAL.NEB. NEB SCH ×4 (08:35→20:45)
[2018-01-12] MEDS: ENOXAPARIN NA (PORCINE) 40 MG/0.4 ML DISP.SYRIN SQ SCH ×2 (10:25→10:43)
[2018-01-12] MEDS: FLUTICASONE PROP 0.05% 16 GM NASAL SPRAY NS SCH ×2 (10:38→21:55)
--- NOTE | 2018-01-12 10:38 | PN ---
Teaching Attending Note Name of Resident: Maria Luz Goetz ATTENDING PHYSICIAN STATEMENT I saw and evaluated the patient. I reviewed the resident's note and discussed the case with the resident. I agree with the resident's findings and plan as documented. SUBJECTIVE: Patient seen and examined in the ICU. Awake and alert. Had severe SOB while ambulating to the bathroom. Remains tachypneic on BD TX. Still with Chest tightness and wheeze. Intake & Output 01/09/18 01/10/18 01/11/18 01/12/18 23:59 23:59 23:59 23:59 Intake Total 350 450 Output Total 1700 700 Balance -1350 -250 Weight 458 lb 8.984 oz 188 lb Last Vital Signs Temp Pulse Resp BP Pulse Ox 98.4 F 74 22 H 107/61 100 01/12/18 06:00 01/12/18 08:00 01/12/18 09:00 01/12/18 08:00 01/12/18 09:46 Active Medications Albuterol Sulfate (Ventolin 0.083% Nebulizer Soln -) 1 amp NEB Q4H PRN PRN Reason: SHORT OF BREATH/WHEEZING Last Admin: 01/11/18 23:13 Dose: 1 amp Albuterol/Ipratropium (Duoneb -) 1 amp NEB RQID [facility] Last Admin: 01/12/18 08:35 Dose: 1 amp Chlorhexidine Gluconate (Hibiclens For Decolonization -) 1 applic TP HS [facility] Last Admin: 01/12/18 01:20 Dose: 1 applic Diphenhydramine HCl (Benadryl Injection -) 25 mg IVPUSH Q8H PRN PRN Reason: NASAL CONGESTION Enoxaparin Sodium (Lovenox -) 40 mg SQ DAILY [facility] Last Admin: 01/11/18 12:22 Dose: Not Given Fluticasone Propionate (Flonase -) 1 spray NS BID [facility] Last Admin: 01/11/18 21:23 Dose: 1 spray Methylprednisolone Sodium Succinate (Solu-Medrol -) 80 mg IVPUSH Q6H-IV [facility] Last Admin: 01/12/18 02:01 Dose: 80 mg Montelukast Sodium (Singulair -) 10 mg PO HS [facility] Last Admin: 01/11/18 21:23 Dose: 10 mg Mupirocin (Bactroban Ointment (For Decolonization) -) 1 applic NS BID [facility] Stop: 01/16/18 09:59 Last Admin: 01/12/18 01:21 Dose: Not Given Terbutaline Sulfate (Brethine Injection -) 0.25 mg SQ ONCE PRN PRN Reason: ASTHMA Stop: 01/13/18 07:10 GENERAL: AOX3, mildly tachypneic on BD TX Heent: NCAT sclera anicteric, conjunctiva clear. No lid lag. NECK: Normal range of motion, supple without lymphadenopathy, JVD, or masses. LUNGS: Bilateral mild expiratory wheeze, few rhonchi HEART: S1 and S2 without murmur, rub or gallop. ABDOMEN: Soft, NTND, normoactive bowel sounds, no guarding, no rebound, no masses. MUSCULOSKELETAL: Normal range of motion at all joints. No bony deformities or tenderness. UPPER EXTREMITIES: 2+ pulses, warm, well-perfused. No cyanosis. No clubbing. Cap refill <2 seconds. No peripheral edema. LOWER EXTREMITIES: 2+ pulses, warm, well-perfused. No calf tenderness. No peripheral edema. NEUROLOGICAL: Non-focal PSYCHIATRIC: Cooperative. Good eye contact. Appropriate mood and affect. SKIN: Warm, dry, normal turgor, no rashes or lesions noted. Laboratory Results - last 24 hr 01/12/18 01/12/18 05:30 05:30 WBC 16.6 H RBC 4.69 Hgb 12.5 Hct 38.7 MCV 82.6 MCH 26.8 MCHC 32.4 RDW 13.8 Plt Count 336 MPV 8.0 Absolute Neuts (auto) 14.6 H Neutrophils % 88.1 H D Lymphocytes % 9.5 D Monocytes % 2.2 L Eosinophils % 0.0 D Basophils % 0.2 Nucleated RBC % 0 Sodium 137 Potassium 4.6 Chloride 105 Carbon Dioxide 25 Anion Gap 7 L BUN 10 Creatinine 0.6 Creat Clearance w eGFR > 60 Random Glucose 166 H Calcium 9.0 Phosphorus 2.8 Magnesium 2.7 H Total Bilirubin 0.2 AST 13 L ALT 21 Alkaline Phosphatase 73 Total Protein 7.0 Albumin 3.5 ASSESSMENT/PLAN: Acute Respiratory Failure due to AE of Asthma Suspected Viral Infection Do not suspect PNA Seizures D/O Previous history of intubation IgE mediated Asthma on 300mg Xolair every 2 weeks (last dose was over 3 weeks ago) Medrol same dose BD TX standing and PRN Epi for worsening of symptoms VTE prophylaxis Aspiration precautions Singulair Norma or equivalent Benadryl PRN Continue ICU monitoring due to tenuous respiratory status Dr Miranda Critical Care patient: Yes Total Critical Care Time (in minutes): 36 Critical Care Statement: The care of this patient involved high complexity decision making to prevent further life threatening deterioration of the patient 's condition and/or to evaluate & treat vital organ system(s) failure or risk of failure.
--- NOTE | 2018-01-12 15:04 | PN ---
Teaching Attending Note ATTENDING PHYSICIAN STATEMENT I saw and evaluated the patient. I reviewed the resident's note and discussed the case with the resident. I agree with the resident's findings and plan as documented. SUBJECTIVE: OBJECTIVE: ASSESSMENT AND PLAN:
--- NOTE | 2018-01-12 15:05 | PN ---
Teaching Attending Note Name of Resident: Layla Gutierrez ATTENDING PHYSICIAN STATEMENT I saw and evaluated the patient. I reviewed the resident's note and discussed the case with the resident. I agree with the resident's findings and plan as documented. SUBJECTIVE: Patient is in icu, off bipap. on 2Liter nc now, but does not feel that well. OBJECTIVE: Vital Signs Temperature 98.4 F 01/12/18 14:00 Pulse Rate 75 01/12/18 14:00 Respiratory Rate 22 H 01/12/18 14:00 Blood Pressure 102/62 01/12/18 14:00 O2 Sat by Pulse Oximetry (%) 100 01/12/18 13:29 GENERAL: AAOx3, in mild distress, able to speak in full sentences. HEAD: NCAT; EYES: PERRLA,EOMI, sclera anicteric, conjunctiva clear. EARS, NOSE, THROAT: dry mucous membranes. NECK: Supple, no JVD, or masses. LUNGS: decreased BS BL; minimal Scattered wheezing bl, on Bipap HEART: RRR, normal S1 and S2 without murmur, rub or gallop. ABDOMEN: Soft, obese, nontender, not distended, normoactive bowel sounds, no guarding, no rebound, no masses. MUSCULOSKELETAL: Normal range of motion at all joints. No bony deformities or tenderness. No CVA tenderness. EXTREMITIES: 2+ pulses, warm, well-perfused. No cyanosis. No clubbing. No peripheral edema. NEUROLOGICAL: Cranial nerves II-XII intact. SKIN: Warm, dry, normal turgor, no rashes or lesions noted, normal capillary refill. CBCD WBC 16.6 K/mm3 (4.0-10.0) H 01/12/18 05:30 RBC 4.69 M/mm3 (3.60-5.2) 01/12/18 05:30 Hgb 12.5 GM/dL (10.7-15.3) 01/12/18 05:30 Hct 38.7 % (32.4-45.2) 01/12/18 05:30 MCV 82.6 fl (80-96) 01/12/18 05:30 MCHC 32.4 g/dl (32.0-36.0) 01/12/18 05:30 RDW 13.8 % (11.6-15.6) 01/12/18 05:30 Plt Count 336 K/MM3 (134-434) 01/12/18 05:30 MPV 8.0 fl (7.5-11.1) 01/12/18 05:30 CMP Sodium 137 mmol/L (136-145) 01/12/18 05:30 Potassium 4.6 mmol/L (3.5-5.1) 01/12/18 05:30 Chloride 105 mmol/L (98-107) 01/12/18 05:30 Carbon Dioxide 25 mmol/L (21-32) 01/12/18 05:30 Anion Gap 7 MMOL/L (8-16) L 01/12/18 05:30 BUN 10 mg/dL (7-18) 01/12/18 05:30 Creatinine 0.6 mg/dL (0.55-1.3) 01/12/18 05:30 Creat Clearance w eGFR > 60 (>60) 01/12/18 05:30 Random Glucose 166 mg/dL (74-106) H 01/12/18 05:30 Calcium 9.0 mg/dL (8.5-10.1) 01/12/18 05:30 Total Bilirubin 0.2 mg/dL (0.2-1) 01/12/18 05:30 AST 13 U/L (15-37) L 01/12/18 05:30 ALT 21 U/L (13-61) 01/12/18 05:30 Alkaline Phosphatase 73 U/L (45-117) 01/12/18 05:30 Total Protein 7.0 g/dl (6.4-8.2) 01/12/18 05:30 Albumin 3.5 g/dl (3.4-5.0) 01/12/18 05:30 Current Medications Generic Name Dose Route Start Last Admin Trade Name Freq PRN Reason Stop Dose Admin Albuterol Sulfate 1 amp 01/11/18 02:40 01/11/18 23:13 Ventolin 0.083% Nebulizer Soln - NEB 1 amp Q4H PRN Administration SHORT OF BREATH/WHEEZING Albuterol/Ipratropium 1 amp 01/11/18 08:00 01/12/18 12:00 Duoneb - NEB 1 amp RQID [facility] Administration Chlorhexidine Gluconate 1 applic 01/11/18 22:00 01/12/18 01:20 Hibiclens For Decolonization - TP 1 applic HS [facility] Administration Diphenhydramine HCl 25 mg 01/12/18 10:09 Benadryl Injection - IVPUSH Q8H PRN NASAL CONGESTION Enoxaparin Sodium 40 mg 01/11/18 10:00 01/12/18 10:43 Lovenox - SQ Not Given DAILY [facility] Fluticasone Propionate 1 spray 01/11/18 22:00 01/12/18 10:38 Flonase - NS 1 spray BID [facility] Administration Methylprednisolone Sodium Succinate 80 mg 01/11/18 08:48 01/12/18 10:25 Solu-Medrol - IVPUSH 80 mg Q6H-IV [facility]ACH Administration Montelukast Sodium 10 mg 01/11/18 22:00 01/11/18 21:23 Singulair - PO 10 mg HS [facility] Administration Mupirocin 1 applic 01/11/18 10:00 01/12/18 10:39 Bactroban Ointment (For Decolonization) - NS 01/16/18 09:59 1 applic BID [facility]ACH Administration Pantoprazole Sodium 20 mg 01/12/18 10:45 Protonix - PO DAILY [facility] Terbutaline Sulfate 0.25 mg 01/12/18 07:11 Brethine Injection - SQ 01/13/18 07:10 ONCE PRN ASTHMA Home Medications Medication Instructions Recorded Albuterol Sulfate Inhaler - 1 - 2 inh PO Q4H 01/11/18 [Ventolin Hfa Inhaler -] Budesonide/Formeterol Fumarate 1 inh PO BID 01/11/18 [SYMBICORT 80/4.5mcg -] Fluticasone Prop 0.05% Nasal 1 - 2 spray NS DAILY 01/11/18 [Flonase -] Omeprazole 20 mg PO DAILY 01/11/18 Tiotropium [place] [Spiriva 4 gm IH DAILY 01/11/18 Respimat] ASSESSMENT AND PLAN: Patient is a 32 yo F with PMHx of asthma and seizure disorder presents with SOB admitted to ICU for acute asthma exacerbation. # Acute Asthma exacerbation: continue current therapy continues to have diminished air entry bl , with Bl wheeze # Seizure disorder has stopped keppra a year ago since was not had seizure for 5 years. -in Icu, continue to monitor in ICU. -continue Duoneb, albuterol, Soumedrol 80mg q6h IV as per ICU team -continue Singulair DVT prophylaxis: lovenox 40 mg SQ
[2018-01-12] MEDS: PANTOPRAZOLE 20 MG TABLET (FP) PO SCH (15:37)
--- NOTE | 2018-01-12 16:51 | PN ---
Physical Exam: SUBJECTIVE: Patient seen and examined at bedside. After episode of respiratory distress at noon yesterday after going to the bathroom, patient remained stable on nasal cannula. She reports nasal congestion last night, given Benadryl which provided relief. Patient had remained on the bed since, but still has tachypnea and wheezing. Will keep close monitoring until patient is able to tolerate activity. Of note, patient reported that she missed her Xolair dose that was supposed to be given last week, but was delayed due to authorization issues. Patient received the dose at the ED on admission. OBJECTIVE: Vital Signs Period Temp Pulse Resp BP Sys/Lawson Pulse Ox Last 24 Hr 98.0 F-98.6 F 70-110 22-27 102-149/60-85 100-100 GENERAL: The patient is awake, alert, and fully oriented, in moderate respiratory distress. HEAD: Normal with no signs of trauma. EYES: PERRLA, EOMI, sclera anicteric, conjunctiva clear. ENT: Oropharynx erythematous without exudates. NECK: Trachea midline, full range of motion, supple. LUNGS: +diffuse expiratory wheezes, bilaterally. HEART: Regular rate and rhythm, S1, S2 without murmur, rub or gallop. ABDOMEN: Soft, nontender, nondistended, normoactive bowel sounds. EXTREMITIES: 2+ pulses, warm, well-perfused, no edema. NEUROLOGICAL: Cranial nerves II through XII grossly intact. Normal speech, gait not observed. PSYCH: Normal mood, normal affect. SKIN: Warm, dry, normal turgor, no rashes or lesions noted Laboratory Results - last 24 hr 01/12/18 01/12/18 05:30 05:30 WBC 16.6 H RBC 4.69 Hgb 12.5 Hct 38.7 MCV 82.6 MCH 26.8 MCHC 32.4 RDW 13.8 Plt Count 336 MPV 8.0 Absolute Neuts (auto) 14.6 H Neutrophils % 88.1 H D Lymphocytes % 9.5 D Monocytes % 2.2 L Eosinophils % 0.0 D Basophils % 0.2 Nucleated RBC % 0 Sodium 137 Potassium 4.6 Chloride 105 Carbon Dioxide 25 Anion Gap 7 L BUN 10 Creatinine 0.6 Creat Clearance w eGFR > 60 Random Glucose 166 H Calcium 9.0 Phosphorus 2.8 Magnesium 2.7 H Total Bilirubin 0.2 AST 13 L ALT 21 Alkaline Phosphatase 73 Total Protein 7.0 Albumin 3.5 Active Medications Generic Name Dose Route Start Last Admin Trade Name Freq PRN Reason Stop Dose Admin Albuterol Sulfate 1 amp 01/11/18 02:40 01/11/18 23:13 Ventolin 0.083% Nebulizer Soln - NEB 1 amp Q4H PRN Administration SHORT OF BREATH/WHEEZING Albuterol/Ipratropium 1 amp 01/11/18 08:00 01/12/18 12:00 Duoneb - NEB 1 amp RQID ZACH Administration Chlorhexidine Gluconate 1 applic 01/11/18 22:00 01/12/18 01:20 Hibiclens For Decolonization - TP 1 applic HS ZACH Administration Diphenhydramine HCl 25 mg 01/12/18 10:09 Benadryl Injection - IVPUSH Q8H PRN NASAL CONGESTION Enoxaparin Sodium 40 mg 01/11/18 10:00 01/12/18 10:43 Lovenox - SQ Not Given DAILY [facility] Fluticasone Propionate 1 spray 01/11/18 22:00 01/12/18 10:38 Flonase - NS 1 spray BID [facility] Administration Methylprednisolone Sodium Succinate 80 mg 01/11/18 08:48 01/12/18 15:37 Solu-Medrol - IVPUSH 80 mg Q6H-IV [facility]ACH Administration Montelukast Sodium 10 mg 01/11/18 22:00 01/11/18 21:23 Singulair - PO 10 mg HS ZACH Administration Mupirocin 1 applic 01/11/18 10:00 01/12/18 10:39 Bactroban Ointment (For Decolonization) - NS 01/16/18 09:59 1 applic BID ZACH Administration Pantoprazole Sodium 20 mg 01/12/18 10:45 01/12/18 15:37 Protonix - PO 20 mg DAILY [facility] Administration Terbutaline Sulfate 0.25 mg 01/12/18 07:11 Brethine Injection - SQ 01/13/18 07:10 ONCE PRN ASTHMA ASSESSMENT/PLAN: Patient is a 32 year old female with past medical history of asthma (on Xolair every 2 weeks) and seizures (on keppra), presented with shortness of breath, after reportedly missing Xolair dose, that was due last week but was not given. Patient admitted for acute asthma exacerbation. #Pulmonary 1)Acute asthma exacerbation likely 2/2 URI -Received Xolair injection at the ED on admission -Stable on nasal cannula overnight, maintaining saturation >92% -CXR daily -Solumedrol 80mg q6h -Albuterol neb q4h and PRN -Singulair 10mg PO daily -Montelukast 10mg PO daily. -Benadryl 25mg q8h PRN for nasal congestion #Cardiology 1)Tachycardia likely 2/2 dyspnea -HR controlled at 80s-90s all day -BP: 109/60 -Qtc 503: Avoid prolonging agents. #Neurology 1)Hx of Seizure -no acute events -not on Keppra, stopped 1 year ago by patient -follows-up with Dr. Pizano #Infectious Disease 1)Upper respiratory tract infection, likely viral -Afebrile, no leukocytosis -Patient has nasal congestion -CXR showed no evidence of PNA -Benadryl 25mg q8h PRN for congestion -No indication for abx at this time -Influenza swab: Negative. #Gastroenterology - Patient is tolerating PO without any difficulty - No acute issues #F/E/N: -not on any standing fluids -Encourage increased oral fluid intake -electrolytes wnl, routine bmp monitoring -regular diet #Prophylaxis: 1)DVT -Lovenox 40mg sq daily #Disposition -full code -ICU for closer monitoring. Visit type - Emergency Visit Emergency Visit: Yes ED Registration Date: 01/11/18 Care time: The patient presented to the Emergency Department on the above date and was hospitalized for further evaluation of their emergent condition. - New Patient This patient is new to me today: Yes Date on this admission: 01/12/18 - Critical Care Critical Care patient: Yes Total Critical Care Time (in minutes): 45 Critical Care Statement: The care of this patient involved high complexity decision making to prevent further life threatening deterioration of the patient 's condition and/or to evaluate & treat vital organ system(s) failure or risk of failure.
--- NOTE | 2018-01-12 17:09 | PN ---
Physical Exam: SUBJECTIVE: Patient seen and examined this morning at bedside. Admits she does not feel well. Had an episode of difficulty breathing accompanied by desaturation while ambulating to the restroom yesterday. No repeat episodes since. No longer on Bipap. OBJECTIVE: Vital Signs Period Temp Pulse Resp BP Sys/Lawson Pulse Ox Last 24 Hr 98.0 F-98.6 F 70-110 22-27 102-149/60-85 100-100 GENERAL: A&Ox3, Mild distress HEAD: NCAT EYES: PERRL, EOMI ENT: Dry mucous membranes. NECK: No JVD LUNGS: Wheezing, Diminished breath sounds at the bases, via 2L NC HEART: Regular rate and rhythm, S1, S2 without murmur ABDOMEN: Soft, nontender, nondistended, + bowel sounds, no guarding EXTREMITIES: 2+ pulses, no edema. NEUROLOGICAL: Cranial nerves II through XII grossly intact. SKIN: Warm, dry, no rashes or lesions noted Laboratory Results - last 24 hr 01/12/18 01/12/18 05:30 05:30 WBC 16.6 H RBC 4.69 Hgb 12.5 Hct 38.7 MCV 82.6 MCH 26.8 MCHC 32.4 RDW 13.8 Plt Count 336 MPV 8.0 Absolute Neuts (auto) 14.6 H Neutrophils % 88.1 H D Lymphocytes % 9.5 D Monocytes % 2.2 L Eosinophils % 0.0 D Basophils % 0.2 Nucleated RBC % 0 Sodium 137 Potassium 4.6 Chloride 105 Carbon Dioxide 25 Anion Gap 7 L BUN 10 Creatinine 0.6 Creat Clearance w eGFR > 60 Random Glucose 166 H Calcium 9.0 Phosphorus 2.8 Magnesium 2.7 H Total Bilirubin 0.2 AST 13 L ALT 21 Alkaline Phosphatase 73 Total Protein 7.0 Albumin 3.5 Microbiology 01/11/18 14:00 Nasopharyngeal Swab Influenza Types A,B Antigen - Final 01/11/18 14:00 Nasopharyngeal Swab - Final Active Medications Albuterol Sulfate (Ventolin 0.083% Nebulizer Soln -) 1 amp NEB Q4H PRN PRN Reason: SHORT OF BREATH/WHEEZING Last Admin: 01/11/18 23:13 Dose: 1 amp Albuterol/Ipratropium (Duoneb -) 1 amp NEB RQID ZACH Last Admin: 01/12/18 12:00 Dose: 1 amp Chlorhexidine Gluconate (Hibiclens For Decolonization -) 1 applic TP HS [facility] Last Admin: 01/12/18 01:20 Dose: 1 applic Diphenhydramine HCl (Benadryl Injection -) 25 mg IVPUSH Q8H PRN PRN Reason: NASAL CONGESTION Enoxaparin Sodium (Lovenox -) 40 mg SQ DAILY [facility] Last Admin: 01/12/18 10:43 Dose: Not Given Fluticasone Propionate (Flonase -) 1 spray NS BID [facility] Last Admin: 01/12/18 10:38 Dose: 1 spray Methylprednisolone Sodium Succinate (Solu-Medrol -) 80 mg IVPUSH Q6H-IV [facility] Last Admin: 01/12/18 15:37 Dose: 80 mg Montelukast Sodium (Singulair -) 10 mg PO HS [facility] Last Admin: 01/11/18 21:23 Dose: 10 mg Mupirocin (Bactroban Ointment (For Decolonization) -) 1 applic NS BID [facility] Stop: 01/16/18 09:59 Last Admin: 01/12/18 10:39 Dose: 1 applic Pantoprazole Sodium (Protonix -) 20 mg PO DAILY [facility] Last Admin: 01/12/18 15:37 Dose: 20 mg Terbutaline Sulfate (Brethine Injection -) 0.25 mg SQ ONCE PRN PRN Reason: ASTHMA Stop: 01/13/18 07:10 IMAGING: -CXR: Prominent left perihilar markings. Weak inspiration. ASSESSMENT/PLAN: 32 yo F with PMHx of asthma and seizure disorder presented to [facility]NOTE 3] with SOB and was admitted to ICU for acute asthma exacerbation. #Acute Respiratory failure -Likely due to Asthma exacerbation from URI; Less likely viral infection, PNA -Given Xolair injection in the ED -Pulmonology (Dr. Miranda) consulted, appreciate Recs, Epi for worsening of symptoms -Continue Benadryl, Duonebs, Albuterol, Singulair, Brethine, Flonase -Continue Solumedrol 80mg Q6H -Bipap PRN, Supplemental O2 via NC -AFebrile, Without Leukocytosis; No indication for ABx at this time -Peak flow daily -CXR Daily #Hx of Seizures -Stable, Last seizure was ~5 years ago -Was on Keppra, stopped on her own over a year ago -Previously followed by Dr. Pizano #FEN -PO Fluids -Lytes WNL -Regular diet #PPx -DVT: Lovenox Dispo: ICU Monitoring Visit type - Emergency Visit Emergency Visit: Yes ED Registration Date: 01/11/18 Care time: The patient presented to the Emergency Department on the above date and was hospitalized for further evaluation of their emergent condition. - New Patient This patient is new to me today: Yes Date on this admission: 01/12/18 - Critical Care Critical Care patient: Yes Total Critical Care Time (in minutes): 40 Critical Care Statement: The care of this patient involved high complexity decision making to prevent further life threatening deterioration of the patient 's condition and/or to evaluate & treat vital organ system(s) failure or risk of failure. - Discharge Referral Referred to [facility] No
--- NOTE | 2018-01-12 19:08 | EKG ---
Test Reason : Blood Pressure : / mmHG Vent. Rate : 110 BPM Atrial Rate : 110 BPM P-R Int : 156 ms QRS Dur : 084 ms QT Int : 372 ms P-R-T Axes : 063 026 045 degrees QTc Int : 503 ms SINUS TACHYCARDIA NONSPECIFIC T WAVE ABNORMALITY ABNORMAL ECG NO PREVIOUS ECGS AVAILABLE Confirmed by ALBANIA PAN MD ([id number]) on 01/12/2018 7:07:53 PM Referred By: Confirmed By:ALBANIA PAN MD
[2018-01-12] MEDS ORDERED: BENZOCAINE/MENTH/CETYLPYRD CL 1 EACH LOZENGE MM PRN (19:34)
[2018-01-12] MEDS ORDERED: PT OWN MED DRAWER 7, Y5N ONE ×2 (21:54→21:59)
[2018-01-12] MEDS: MONTELUKAST NA 10 MG TABLET PO SCH (21:55)
[2018-01-13] MEDS: methylPREDNISolone NA SUCC 40 MG/1 ML VIAL IVPUSH SCH ×3 (02:44→14:48)
[2018-01-13 06:02] LABS: HEMATOCRIT 37.7 % (32.4-45.2); HEMOGLOBIN 12.2 GM/dL (10.7-15.3); MCH 26.6 pg (25.7-33.7); MCHC 32.3 g/dl (32.0-36.0); MEAN CELL VOLUME 82.3 fl (80-96); PLATELET COUNT 310 K/MM3 (134-434); RBC 4.59 M/mm3 (3.60-5.2); RDW 14.3 % (11.6-15.6); WHITE BLOOD COUNT 17.4 K/mm3 (4.0-10.0)
[2018-01-13 06:24] LABS: ANION GAP 7 MMOL/L (8-16); BLOOD UREA NITROGEN 14 mg/dL (7-18); CALCIUM 8.4 mg/dL (8.5-10.1); CHLORIDE 107 mmol/L (98-107); CO2 26 mmol/L (21-32); CREATININE 0.7 mg/dL (0.55-1.3); GLUCOSE,RANDOM 133 mg/dL (74-106); MAGNESIUM 2.3 mg/dL (1.8-2.4); PHOSPHOROUS 2.8 mg/dL (2.5-4.9); POTASSIUM 4.4 mmol/L (3.5-5.1); SODIUM 140 mmol/L (136-145)
[2018-01-13] MEDS: ALBUTEROL SO4 2.5/IPRATROPIUM 0.5 INH SOL 3 ML VIAL.NEB. NEB SCH ×4 (07:35→21:13)
[2018-01-13] MEDS ORDERED: PT OWN MED DRAWER 7, Y5N ONE ×2 (10:56→11:18)
[2018-01-13] MEDS: FLUTICASONE PROP 0.05% 16 GM NASAL SPRAY NS SCH ×2 (10:57→21:42)
[2018-01-13] MEDS: MUPIROCIN 2% TOPICAL OINTMENT FOR DECOLONIZATION NS SCH ×2 (11:02→21:43)
[2018-01-13] MEDS: ENOXAPARIN NA (PORCINE) 40 MG/0.4 ML DISP.SYRIN SQ SCH (11:03)
[2018-01-13] MEDS: PANTOPRAZOLE 20 MG TABLET (FP) PO SCH (11:04)
--- NOTE | 2018-01-13 12:54 | PN ---
Physical Exam: SUBJECTIVE: Patient seen and examined in the ICU. feeling/breathing better but still SOB when ambulating to commode. OBJECTIVE: Vital Signs Period Temp Pulse Resp BP Sys/Lawson Pulse Ox Last 24 Hr 98.1 F-98.6 F 73-95 18-22 102-132/60-79 97-100 GENERAL: AOX3 on NC. HEAD: NCAT EYES: PERRLA, EOMI, sclera anicteric, conjunctiva clear. ENT: Oropharynx erythematous without exudates. NECK: Trachea midline, full range of motion, supple. LUNGS: +diffuse expiratory wheezes, bilaterally. HEART: RRR, S1, S2 without murmur, rub or gallop. ABDOMEN: Soft, NTND, normoactive bowel sounds. EXTREMITIES: 2+ pulses, warm, well-perfused, no edema. NEUROLOGICAL: Cranial nerves II through XII grossly intact. Normal speech, gait not observed. PSYCH: Normal mood, normal affect. SKIN: Warm, dry, normal turgor, no rashes or lesions noted Laboratory Results - last 24 hr 01/13/18 01/13/18 05:30 05:30 WBC 17.4 H RBC 4.59 Hgb 12.2 Hct 37.7 MCV 82.3 MCH 26.6 MCHC 32.3 RDW 14.3 Plt Count 310 MPV 8.0 Sodium 140 Potassium 4.4 Chloride 107 Carbon Dioxide 26 Anion Gap 7 L BUN 14 Creatinine 0.7 Creat Clearance w eGFR > 60 Random Glucose 133 H Calcium 8.4 L Phosphorus 2.8 Magnesium 2.3 Active Medications Generic Name Dose Route Start Last Admin Trade Name Freq PRN Reason Stop Dose Admin Albuterol Sulfate 1 amp 01/11/18 02:40 01/11/18 23:13 Ventolin 0.083% Nebulizer Soln - NEB 1 amp Q4H PRN Administration SHORT OF BREATH/WHEEZING Albuterol/Ipratropium 1 amp 01/11/18 08:00 01/13/18 11:11 Duoneb - NEB 1 amp RQID ZACH Administration Benzocaine/Menthol 1 each 01/12/18 19:34 01/13/18 02:45 Cepacol Lozenge - MM 1 each PRN PRN Administration SORE THROAT Chlorhexidine Gluconate 1 applic 01/11/18 22:00 01/12/18 21:55 Hibiclens For Decolonization - TP 1 applic HS [facility] Administration Diphenhydramine HCl 25 mg 01/12/18 10:09 01/13/18 02:45 Benadryl Injection - IVPUSH 25 mg Q8H PRN Administration NASAL CONGESTION Enoxaparin Sodium 40 mg 01/11/18 10:00 01/13/18 11:03 Lovenox - SQ Not Given DAILY [facility] Fluticasone Propionate 1 spray 01/11/18 22:00 01/13/18 10:57 Flonase - NS 1 spray BID [facility] Administration Methylprednisolone Sodium Succinate 80 mg 01/11/18 08:48 01/13/18 10:57 Solu-Medrol - IVPUSH 80 mg Q6H-IV [facility] Administration Montelukast Sodium 10 mg 01/11/18 22:00 01/12/18 21:55 Singulair - PO 10 mg HS [facility] Administration Mupirocin 1 applic 01/11/18 10:00 01/13/18 11:02 Bactroban Ointment (For Decolonization) - NS 01/16/18 09:59 1 applic BID [facility] Administration Pantoprazole Sodium 20 mg 01/12/18 10:45 01/13/18 11:04 Protonix - PO Not Given DAILY [facility] ASSESSMENT/PLAN: 32 year old female with PMH of asthma (on Xolair every 2 weeks) and seizures ( on keppra), presented with SOB, after reportedly missing Xolair dose, that was due last week but was not given. Patient admitted for acute asthma exacerbation. #Pulmonary 1)Acute asthma exacerbation likely 2/2 URI -Received Xolair injection at the ED on admission -Stable on NC overnight, maintaining saturation >92% -CXR daily -Solumedrol 80mg q6h -Albuterol neb q4h and PRN -Singulair 10mg PO daily -Benadryl 25mg q8h PRN for nasal congestion -monitor peak flows #Cardiology 1)Tachycardia likely 2/2 dyspnea -HR controlled at 80s-90s all day -BP: 109/60 -Qtc 503: Avoid prolonging agents. #Neurology 1)Hx of Seizure -no acute events -not on Keppra, stopped 1 year ago by patient -follows-up with Dr. Pizano #Infectious Disease 1)Upper respiratory tract infection, likely viral -Afebrile, no leukocytosis -Patient has nasal congestion -CXR showed no evidence of PNA -Benadryl 25mg q8h PRN for congestion -No indication for abx at this time -Influenza swab: Negative. -f/u RSV panel #Gastroenterology - Patient is tolerating PO without any difficulty - No acute issues #F/E/N: -not on any standing fluids -Encourage increased oral fluid intake -electrolytes wnl, routine bmp monitoring -regular diet #Prophylaxis: 1)DVT -Lovenox 40mg sq daily #Disposition -full code -ICU for closer monitoring. -Improving, likely transfer dia if remains stable Visit type - Emergency Visit Emergency Visit: Yes ED Registration Date: 01/11/18 Care time: The patient presented to the Emergency Department on the above date and was hospitalized for further evaluation of their emergent condition. - New Patient This patient is new to me today: Yes Date on this admission: 01/13/18 - Critical Care Critical Care patient: Yes Total Critical Care Time (in minutes): 36 Critical Care Statement: The care of this patient involved high complexity decision making to prevent further life threatening deterioration of the patient 's condition and/or to evaluate & treat vital organ system(s) failure or risk of failure.
--- NOTE | 2018-01-13 12:55 | PN ---
Teaching Attending Note Name of Resident: Javier Dobbins ATTENDING PHYSICIAN STATEMENT I saw and evaluated the patient. I reviewed the resident's note and discussed the case with the resident. I agree with the resident's findings and plan as documented. SUBJECTIVE: Pt seen and examined in the ICU. Breathing slightly better today but still with cough, wheezing, chest tightness. OBJECTIVE: Vital Signs Period Temp Pulse Resp BP Sys/Lawson Pulse Ox Last 24 Hr 98.1 F-98.6 F 73-95 18-22 102-132/60-79 97-100 Intake & Output 01/10/18 01/11/18 01/12/18 01/13/18 23:59 23:59 23:59 23:59 Intake Total 350 1550 Output Total 1700 1300 Balance -1350 250 Weight 208 kg 85.275 kg 85.275 kg Gen: tachypneic with speaking Heart: RRR Lung: poor air movement, bilateral rhonchi, wheezes Abd: soft, nontender Ext: no edema CBC, BMP 01/13/18 05:30 01/13/18 05:30 Active Medications Albuterol Sulfate (Ventolin 0.083% Nebulizer Soln -) 1 amp NEB Q4H PRN PRN Reason: SHORT OF BREATH/WHEEZING Last Admin: 01/11/18 23:13 Dose: 1 amp Albuterol/Ipratropium (Duoneb -) 1 amp NEB RQID [facility] Last Admin: 01/13/18 11:11 Dose: 1 amp Benzocaine/Menthol (Cepacol Lozenge -) 1 each MM PRN PRN PRN Reason: SORE THROAT Last Admin: 01/13/18 02:45 Dose: 1 each Chlorhexidine Gluconate (Hibiclens For Decolonization -) 1 applic TP HS [facility] Last Admin: 01/12/18 21:55 Dose: 1 applic Diphenhydramine HCl (Benadryl Injection -) 25 mg IVPUSH Q8H PRN PRN Reason: NASAL CONGESTION Last Admin: 01/13/18 02:45 Dose: 25 mg Enoxaparin Sodium (Lovenox -) 40 mg SQ DAILY [facility] Last Admin: 01/13/18 11:03 Dose: Not Given Fluticasone Propionate (Flonase -) 1 spray NS BID [facility] Last Admin: 11/12/18 10:57 Dose: 1 spray Methylprednisolone Sodium Succinate (Solu-Medrol -) 80 mg IVPUSH Q6H-IV [facility] Last Admin: 01/13/18 10:57 Dose: 80 mg Montelukast Sodium (Singulair -) 10 mg PO HS [facility] Last Admin: 01/12/18 21:55 Dose: 10 mg Mupirocin (Bactroban Ointment (For Decolonization) -) 1 applic NS BID [facility] Stop: 01/16/18 09:59 Last Admin: 01/13/18 11:02 Dose: 1 applic Pantoprazole Sodium (Protonix -) 20 mg PO DAILY [facility] Last Admin: 01/13/18 11:04 Dose: Not Given ASSESSMENT AND PLAN: Status Asthmaticus Seizure Disorder - continue medrol at current dose - inhaled bronchodilators standing and PRN - o2 to keep SpO2 >90% - singulair - monitor peak flows - BiPAP as needed to assist in work of breathing - DVT prophylaxis - continue ICU monitoring critical care time spent in reviewing chart, evaluating patient and formulating plan 35 min
[2018-01-13] MEDS ORDERED: PANTOPRAZOLE 40 MG TABLET (FP) PO SCH (14:03)
[2018-01-13] MEDS ORDERED: MAG HYDROX/AL HYDROX/SIMETH 30 ML UNIT-DOSE CUP PO PRN ×2 (14:03→22:57)
--- NOTE | 2018-01-13 16:08 | PN ---
Physical Exam: SUBJECTIVE: Patient seen and examined this morning at bedside. No new complaints. Continues to have SOB when ambulating to the commode. No acute events overnight. OBJECTIVE: Vital Signs Period Temp Pulse Resp BP Sys/Lawson Pulse Ox Last 24 Hr 98.1 F-98.6 F 73-95 18-22 104-132/67-79 97-100 GENERAL: A&Ox3, Mild distress HEAD: NCAT EYES: PERRL, EOMI ENT: Dry mucous membranes. NECK: No JVD LUNGS: Wheezing, Diminished breath sounds at the bases, via 2L NC HEART: Regular rate and rhythm, S1, S2 without murmur ABDOMEN: Soft, nontender, nondistended, + bowel sounds, no guarding EXTREMITIES: 2+ pulses, no edema. NEUROLOGICAL: Cranial nerves II through XII grossly intact. SKIN: Warm, dry, no rashes or lesions noted Laboratory Results - last 24 hr 01/13/18 01/13/18 05:30 05:30 WBC 17.4 H RBC 4.59 Hgb 12.2 Hct 37.7 MCV 82.3 MCH 26.6 MCHC 32.3 RDW 14.3 Plt Count 310 MPV 8.0 Sodium 140 Potassium 4.4 Chloride 107 Carbon Dioxide 26 Anion Gap 7 L BUN 14 Creatinine 0.7 Creat Clearance w eGFR > 60 Random Glucose 133 H Calcium 8.4 L Phosphorus 2.8 Magnesium 2.3 Microbiology 01/13/18 10:30 Nasopharyngeal Swab Respiratory Virus (PCR) - Preliminary 01/13/18 10:30 Nasopharyngeal Swab Respiratory Syncytial Virus Ag - Final 01/11/18 14:00 Nasopharyngeal Swab Influenza Types A,B Antigen - Final 01/11/18 14:00 Nasopharyngeal Swab - Final Active Medications Al Hydroxide/Mg Hydroxide (Mylanta Oral Suspension -) 30 ml PO Q6H PRN PRN Reason: DYSPEPSIA Albuterol Sulfate (Ventolin 0.083% Nebulizer Soln -) 1 amp NEB Q4H PRN PRN Reason: SHORT OF BREATH/WHEEZING Last Admin: 01/11/18 23:13 Dose: 1 amp Albuterol/Ipratropium (Duoneb -) 1 amp NEB RQID [facility] Last Admin: 01/13/18 11:11 Dose: 1 amp Benzocaine/Menthol (Cepacol Lozenge -) 1 each MM PRN PRN PRN Reason: SORE THROAT Last Admin: 01/13/18 02:45 Dose: 1 each Chlorhexidine Gluconate (Hibiclens For Decolonization -) 1 applic TP HS [facility] Last Admin: 01/12/18 21:55 Dose: 1 applic Diphenhydramine HCl (Benadryl Injection -) 25 mg IVPUSH Q8H PRN PRN Reason: NASAL CONGESTION Last Admin: 01/13/18 15:21 Dose: 25 mg Enoxaparin Sodium (Lovenox -) 40 mg SQ DAILY [facility] Last Admin: 01/13/18 11:03 Dose: Not Given Fluticasone Propionate (Flonase -) 1 spray NS BID [facility] Last Admin: 01/13/18 10:57 Dose: 1 spray Methylprednisolone Sodium Succinate (Solu-Medrol -) 80 mg IVPUSH Q6H-IV [facility] Last Admin: 01/13/18 14:48 Dose: 80 mg Montelukast Sodium (Singulair -) 10 mg PO HS [facility] Last Admin: 01/12/18 21:55 Dose: 10 mg Mupirocin (Bactroban Ointment (For Decolonization) -) 1 applic NS BID [facility] Stop: 01/16/18 09:59 Last Admin: 01/13/18 11:02 Dose: 1 applic Pantoprazole Sodium (Protonix -) 40 mg PO DAILY [facility] IMAGING: -CXR (01/11): Prominent left perihilar markings. Weak inspiration. -CXR (01/12): Since 01/11/2018 again noted are some coarse changes with prominent mediastinum and sharp angles. -CXR (01/13): A single AP view the chest reveals a weak inspiration with prominent mediastinum, central crowding and no sign of an acute process. The bones and soft tissues are intact. -EKG: SINUS TACHYCARDIA, VR 110, QTc 503 ASSESSMENT/PLAN: 32 yo F with PMHx of asthma and seizure disorder presented to [facility] with SOB and was admitted to ICU for acute asthma exacerbation. #Acute Respiratory failure -Likely due to Asthma exacerbation from URI; Less likely viral infection, PNA -Given Xolair injection in the ED -Pulmonology (Dr. Miranda) consulted, appreciate Recs, Epi for worsening of symptoms -Continue Benadryl, Duonebs, Albuterol, Singulair, Brethine, Flonase -Continue Solumedrol 80mg Q6H -Bipap PRN, Supplemental O2 via NC -AFebrile, Without Leukocytosis; No indication for ABx at this time -Peak flow daily -CXR Daily (Noted Above) -Flu Swab noted above; RSV Panel pending #Hx of Seizures -Stable, Last seizure was ~5 years ago -Was on Keppra, stopped on her own over a year ago -Previously followed by Dr. Pizano #FEN -PO Fluids -Lytes WNL -Regular diet #PPx -DVT: Lovenox Dispo: ICU Monitoring Visit type - Emergency Visit Emergency Visit: Yes ED Registration Date: 01/11/18 Care time: The patient presented to the Emergency Department on the above date and was hospitalized for further evaluation of their emergent condition. - New Patient This patient is new to me today: No - Critical Care Critical Care patient: No - Discharge Referral Referred to [facility] Med P.C.: No
--- NOTE | 2018-01-13 17:27 | PN ---
Teaching Attending Note Name of Resident: Layla Gutierrez ATTENDING PHYSICIAN STATEMENT I saw and evaluated the patient. I reviewed the resident's note and discussed the case with the resident. I agree with the resident's findings and plan as documented. SUBJECTIVE: Patient feels better today. states that she missed her Xolair dose that she gets every 2 weeks. no fever or chills. OBJECTIVE: Vital Signs Temperature 98.2 F 01/13/18 14:00 Pulse Rate 94 H 01/13/18 16:00 Respiratory Rate 18 01/13/18 16:00 Blood Pressure 117/71 01/13/18 16:00 O2 Sat by Pulse Oximetry (%) 100 01/13/18 14:00 GENERAL: AAOx3, in mild distress, able to speak in full sentences. HEAD: NCAT; EYES: PERRLA,EOMI, sclera anicteric, conjunctiva clear. EARS, NOSE, THROAT: dry mucous membranes. NECK: Supple, no JVD, or masses. LUNGS: better air entry BL; positive for wheezing bl, off Bipap HEART: RRR, normal S1 and S2 without murmur, rub or gallop. ABDOMEN: Soft, obese, nontender, not distended, normoactive bowel sounds, no guarding, no rebound, no masses. MUSCULOSKELETAL: Normal range of motion at all joints. No bony deformities or tenderness. No CVA tenderness. EXTREMITIES: 2+ pulses, warm, well-perfused. No cyanosis. No clubbing. No peripheral edema. NEUROLOGICAL: Cranial nerves II-XII intact. SKIN: Warm, dry, normal turgor, no rashes or lesions noted, normal capillary refill. CBCD WBC 17.4 K/mm3 (4.0-10.0) H 01/13/18 05:30 RBC 4.59 M/mm3 (3.60-5.2) 01/13/18 05:30 Hgb 12.2 GM/dL (10.7-15.3) 01/13/18 05:30 Hct 37.7 % (32.4-45.2) 01/13/18 05:30 MCV 82.3 fl (80-96) 01/13/18 05:30 MCHC 32.3 g/dl (32.0-36.0) 01/13/18 05:30 RDW 14.3 % (11.6-15.6) 01/13/18 05:30 Plt Count 310 K/MM3 (134-434) 01/13/18 05:30 MPV 8.0 fl (7.5-11.1) 01/13/18 05:30 CMP Sodium 140 mmol/L (136-145) 01/13/18 05:30 Potassium 4.4 mmol/L (3.5-5.1) 01/13/18 05:30 Chloride 107 mmol/L (98-107) 01/13/18 05:30 Carbon Dioxide 26 mmol/L (21-32) 01/13/18 05:30 Anion Gap 7 MMOL/L (8-16) L 01/13/18 05:30 BUN 14 mg/dL (7-18) 01/13/18 05:30 Creatinine 0.7 mg/dL (0.55-1.3) 01/13/18 05:30 Creat Clearance w eGFR > 60 (>60) 01/13/18 05:30 Random Glucose 133 mg/dL (74-106) H 01/13/18 05:30 Calcium 8.4 mg/dL (8.5-10.1) L 01/13/18 05:30 Total Bilirubin 0.2 mg/dL (0.2-1) 01/12/18 05:30 AST 13 U/L (15-37) L 01/12/18 05:30 ALT 21 U/L (13-61) 01/12/18 05:30 Alkaline Phosphatase 73 U/L (45-117) 01/12/18 05:30 Total Protein 7.0 g/dl (6.4-8.2) 01/12/18 05:30 Albumin 3.5 g/dl (3.4-5.0) 01/12/18 05:30 Current Medications Generic Name Dose Route Start Last Admin Trade Name Freq PRN Reason Stop Dose Admin Al Hydroxide/Mg Hydroxide 30 ml 01/13/18 14:03 Mylanta Oral Suspension - PO Q6H PRN DYSPEPSIA Albuterol Sulfate 1 amp 01/11/18 02:40 01/11/18 23:13 Ventolin 0.083% Nebulizer Soln - NEB 1 amp Q4H PRN Administration SHORT OF BREATH/WHEEZING Albuterol/Ipratropium 1 amp 01/11/18 08:00 11/12/18 16:19 Duoneb - NEB 1 amp RQID [facility] Administration Benzocaine/Menthol 1 each 01/12/18 19:34 01/13/18 02:45 Cepacol Lozenge - MM 1 each PRN PRN Administration SORE THROAT Chlorhexidine Gluconate 1 applic 01/11/18 22:00 01/12/18 21:55 Hibiclens For Decolonization - TP 1 applic HS [facility] Administration Diphenhydramine HCl 25 mg 01/12/18 10:09 01/13/18 15:21 Benadryl Injection - IVPUSH 25 mg Q8H PRN Administration NASAL CONGESTION Enoxaparin Sodium 40 mg 01/11/18 10:00 01/13/18 11:03 Lovenox - SQ Not Given DAILY [facility] Fluticasone Propionate 1 spray 01/11/18 22:00 01/13/18 10:57 Flonase - NS 1 spray BID [facility] Administration Methylprednisolone Sodium Succinate 80 mg 01/11/18 08:48 01/13/18 14:48 Solu-Medrol - IVPUSH 80 mg Q6H-IV [facility] Administration Montelukast Sodium 10 mg 01/11/18 22:00 01/12/18 21:55 Singulair - PO 10 mg HS [facility] Administration Mupirocin 1 applic 01/11/18 10:00 01/13/18 11:02 Bactroban Ointment (For Decolonization) - NS 01/16/18 09:59 1 applic BID [facility] Administration Pantoprazole Sodium 40 mg 01/13/18 14:03 Protonix - PO DAILY [facility] Home Medications Medication Instructions Recorded Albuterol Sulfate Inhaler - 1 - 2 inh PO Q4H 01/11/18 [Ventolin Hfa Inhaler -] Budesonide/Formeterol Fumarate 1 inh PO BID 01/11/18 [SYMBICORT 80/4.5mcg -] Fluticasone Prop 0.05% Nasal 1 - 2 spray NS DAILY 01/11/18 [Flonase -] Omeprazole 20 mg PO DAILY 01/11/18 Tiotropium [place] [Spiriva 4 gm IH DAILY 01/11/18 Respimat] ASSESSMENT AND PLAN: Patient is a 32 yo F with PMHx of asthma and seizure disorder presents with SOB admitted to ICU for acute asthma exacerbation. # Acute Asthma exacerbation: Patient is doing better today will continue current therapy. # Seizure disorder has stopped keppra a year ago since was not had seizure for 5 years. -in Icu, continue to monitor in ICU. -continue Duoneb, albuterol, Solumedrol 80mg q6h IV as per ICU team, continue Duoneb, albuterol prn. -continue Singulair DVT prophylaxis: lovenox 40 mg SQ
--- NOTE | 2018-01-13 18:56 | PN ---
Progress Note (short form) - Note Progress Note: Patient's Peak Flow is 520 (her baseline is 350). Spo2 is 98 % at 2L. Vitas are stable. Transferring patient to Med-surg.
--- NOTE | 2018-01-13 20:38 | PN ---
Progress Note (short form) - Note Progress Note: On-call resident intern asked to evaluate patient who requests to leave AMA Patient states that her IV line is causing significant discomfort, and requests to change her IV medications to oral route Physical exam: GENERAL: Patient sitting comfortably in exam bed, no acute distress. HEENT: PERRLA, EOMI, no scleral icterus or conjunctival injection PULMONARY: Good inspiratory effort, with poor air entery b/l. Inspiratory and expiratory wheezing auscultated b/l. CV: RRR, +S1, S2 auscultated, no murmurs, rubs, gallops NEURO: CN II-XII intact, without gross focal deficits. Assessment, Plan: Discussed with transfusion aide attending, Dr. Lunsford regarding switching her solumedrol and benadryl from IV to PO Dosing adjusted by Pharmacy: IV Solu-medrol 80mg Q6H to oral Prednisone 100mg Q6H. Benadryl 25mg IV Q8H changed to Benadryl 25mg PO Q6H Continue all other medications as directed. Discussed the importance of remaining under observation in the hospital Discussed that while we are changing her medications to PO route to make her more comfortable, we still may need to change route to IV medication if her vital signs are not stable, or she is in respiratory distress. Discussed patient's concerns and risks of leaving the hospital against medical advice with patient, who agrees to stay tonight. Continue close observation, monitoring of vital signs.
[2018-01-13] MEDS: MONTELUKAST NA 10 MG TABLET PO SCH (21:39)
[2018-01-13] MEDS: predniSONE 20 MG TABLET (UD) PO SCH (21:39)
[2018-01-13] MEDS: CHLORHEXIDINE GLUCONATE 4% CLEANSER FOR DECOLONIZATION TP SCH (21:39)
[2018-01-13] MEDS ORDERED: ALBUTEROL SO4 0.083% IH SOL 2.5 MG/3 ML VIAL.NEB. NEB PRN (22:57)
[2018-01-13] MEDS ORDERED: BENZOCAINE/MENTH/CETYLPYRD CL 1 EACH LOZENGE MM PRN (22:57)
[2018-01-14] MEDS ORDERED: PT OWN MED DRAWER 7, Y5N ONE ×2 (00:07→21:28)
[2018-01-14] MEDS: ALBUTEROL SO4 2.5/IPRATROPIUM 0.5 INH SOL 3 ML VIAL.NEB. NEB SCH ×3 (07:35→20:22)
[2018-01-14 07:47] LABS: ALBUMIN 3.3 g/dl (3.4-5.0); ALK PHOS 86 U/L (45-117); ANION GAP 4 MMOL/L (8-16); BILIRUBIN,TOTAL 0.2 mg/dL (0.2-1); BLOOD UREA NITROGEN 12 mg/dL (7-18); CALCIUM 8.8 mg/dL (8.5-10.1); CHLORIDE 105 mmol/L (98-107); CO2 27 mmol/L (21-32); CREATININE 0.6 mg/dL (0.55-1.3); GLUCOSE,RANDOM 142 mg/dL (74-106); MAGNESIUM 2.5 mg/dL (1.8-2.4); PHOSPHOROUS 3.3 mg/dL (2.5-4.9); POTASSIUM 4.3 mmol/L (3.5-5.1); SGOT/AST 9 U/L (15-37); SGPT/ALT 21 U/L (13-61); SODIUM 136 mmol/L (136-145); TOT PROT 6.7 g/dl (6.4-8.2)
[2018-01-14 08:05] LABS: PROTHROMBIN TIME (PATIENT) 11.8 SEC (9.7-13.0)
[2018-01-14 08:08] LABS: ACTIVATED PTT 24.8 SECONDS (25.2-36.5)
[2018-01-14 08:51] LABS: BASO % 0.2 % (0-2.0); EOS % 0.1 % (0-4.5); HEMATOCRIT 39.6 % (32.4-45.2); HEMOGLOBIN 12.7 GM/dL (10.7-15.3); LYMPH % 11.5 % (8-40); MCH 26.5 pg (25.7-33.7); MEAN CELL VOLUME 82.9 fl (80-96); MONO % 3.9 % (3.8-10.2); NEUT % 84.3 % (42.8-82.8); RBC 4.78 M/mm3 (3.60-5.2); RDW 14.2 % (11.6-15.6); WHITE BLOOD COUNT 19.4 K/mm3 (4.0-10.0)
[2018-01-14] MEDS ORDERED: MUPIROCIN 2% TOPICAL OINTMENT FOR DECOLONIZATION NS SCH (10:00)
[2018-01-14] MEDS: FLUTICASONE PROP 0.05% 16 GM NASAL SPRAY NS SCH ×2 (10:18→21:37)
[2018-01-14] MEDS: ENOXAPARIN NA (PORCINE) 40 MG/0.4 ML DISP.SYRIN SQ SCH (10:18)
[2018-01-14] MEDS: predniSONE 20 MG TABLET (UD) PO SCH (10:18)
[2018-01-14] MEDS: PANTOPRAZOLE 40 MG TABLET (FP) PO SCH (10:18)
[2018-01-14] MEDS: diphenhydrAMINE HCL 25 MG CAPSULE (FP) PO PRN ×2 (10:23→21:37)
--- NOTE | 2018-01-14 14:47 | PN ---
Progress Note, Physician History of Present Illness: pulmonary alert,feeling better,less dyspneic - Current Medication List Current Medications: Active Medications Al Hydroxide/Mg Hydroxide (Mylanta Oral Suspension -) 30 ml PO Q6H PRN PRN Reason: DYSPEPSIA Albuterol Sulfate (Ventolin 0.083% Nebulizer Soln -) 1 amp NEB Q4H PRN PRN Reason: SHORT OF BREATH/WHEEZING Albuterol/Ipratropium (Duoneb -) 1 amp NEB RQID [facility] Last Admin: 01/14/18 07:35 Dose: 1 amp Benzocaine/Menthol (Cepacol Lozenge -) 1 each MM PRN PRN PRN Reason: SORE THROAT Diphenhydramine HCl (Benadryl -) 25 mg PO Q6H PRN PRN Reason: FOR ITCHING Last Admin: 01/14/18 10:23 Dose: 25 mg Enoxaparin Sodium (Lovenox -) 40 mg SQ DAILY [facility] Last Admin: 01/14/18 10:18 Dose: Not Given Fluticasone Propionate (Flonase -) 1 spray NS BID [facility] Last Admin: 01/14/18 10:18 Dose: 1 spray Montelukast Sodium (Singulair -) 10 mg PO HS [facility] Pantoprazole Sodium (Protonix -) 40 mg PO DAILY [facility] Last Admin: 01/14/18 10:18 Dose: 40 mg Prednisone (Deltasone -) 60 mg PO DAILY [facility] - Objective Vital Signs: Vital Signs Temperature 98.5 F 01/14/18 14:26 Pulse Rate 75 01/14/18 14:26 Respiratory Rate 20 01/14/18 08:51 Blood Pressure 117/70 01/14/18 14:26 O2 Sat by Pulse Oximetry (%) 100 01/14/18 09:00 Constitutional: Yes: Calm, Obese Eyes: Yes: WNL HENT: Yes: WNL Neck: Yes: WNL Cardiovascular: Yes: Regular Rate and Rhythm, S1, S2 Respiratory: Yes: Wheezes (scattered whit wheezes) Gastrointestinal: Yes: Normal Bowel Sounds, Soft Extremities: Yes: WNL Edema: No Labs: CBC, BMP 01/14/18 06:30 01/14/18 06:30 INR, PTT INR 1.00 (0.83-1.09) 11/13/18 06:30 Problem List - Problems (1) Asthma exacerbation Code(s): J45.901 - UNSPECIFIED ASTHMA WITH (ACUTE) EXACERBATION Qualifiers: Asthma severity: severe Asthma persistence: persistent Qualified Code(s) : J45.51 - Severe persistent asthma with (acute) exacerbation (2) Seizure disorder Code(s): G40.909 - EPILEPSY, UNSP, NOT INTRACTABLE, WITHOUT STATUS EPILEPTICUS (3) Status asthmaticus Code(s): J45.902 - UNSPECIFIED ASTHMA WITH STATUS ASTHMATICUS Assessment/Plan ASSESSMENT AND PLAN: Status Asthmaticus improving Seizure Disorder - steroids - inhaled bronchodilators standing and PRN - o2 to keep SpO2 >90% - singulair - monitor peak flows - BiPAP as needed to assist in work of breathing - DVT prophylaxis - sleep screen DR PORRAS
--- NOTE | 2018-01-14 14:58 | PN ---
Physical Exam: SUBJECTIVE: Patient seen and examined this morning at bedside. Less Hoarseness in voice, feels SOB has improved. No new complaints. OBJECTIVE: Vital Signs Period Temp Pulse Resp BP Sys/Lawson Pulse Ox Last 24 Hr 98.4 F-98.7 F 75-94 16-20 114-125/68-84 100-100 GENERAL: A&Ox3, NAD HEAD: NCAT EYES: PERRL, EOMI ENT: Dry mucous membranes. NECK: No JVD LUNGS: Wheezing, Diminished breath sounds at the bases, via 2L NC HEART: Regular rate and rhythm, S1, S2 without murmur ABDOMEN: Soft, nontender, nondistended, + bowel sounds, no guarding EXTREMITIES: 2+ pulses, no edema. NEUROLOGICAL: Cranial nerves II through XII grossly intact. SKIN: Warm, dry, no rashes or lesions noted Laboratory Results - last 24 hr 01/14/18 01/14/18 01/14/18 06:30 06:30 06:30 WBC 19.4 H RBC 4.78 Hgb 12.7 Hct 39.6 MCV 82.9 MCH 26.5 MCHC 32.0 RDW 14.2 Plt Count Absolute Neuts (auto) 16.4 H Neutrophils % 84.3 H Lymphocytes % 11.5 D Monocytes % 3.9 Eosinophils % 0.1 D Basophils % 0.2 Nucleated RBC % 0 Platelet Comment Slt plt clumping PT with INR 11.80 INR 1.00 PTT (Actin FS) 24.8 L Sodium 136 Potassium 4.3 Chloride 105 Carbon Dioxide 27 Anion Gap 4 L BUN 12 Creatinine 0.6 Creat Clearance w eGFR > 60 Random Glucose 142 H Calcium 8.8 Phosphorus 3.3 Magnesium 2.5 H Total Bilirubin 0.2 AST 9 L ALT 21 Alkaline Phosphatase 86 Total Protein 6.7 Albumin 3.3 L Microbiology 01/13/18 10:30 Nasopharyngeal Swab Respiratory Virus (PCR) - Preliminary 01/13/18 10:30 Nasopharyngeal Swab Respiratory Syncytial Virus Ag - Final 01/11/18 14:00 Nasopharyngeal Swab Influenza Types A,B Antigen - Final 01/11/18 14:00 Nasopharyngeal Swab - Final Active Medications Al Hydroxide/Mg Hydroxide (Mylanta Oral Suspension -) 30 ml PO Q6H PRN PRN Reason: DYSPEPSIA Albuterol Sulfate (Ventolin 0.083% Nebulizer Soln -) 1 amp NEB Q4H PRN PRN Reason: SHORT OF BREATH/WHEEZING Albuterol/Ipratropium (Duoneb -) 1 amp NEB RQID [facility] Last Admin: 01/14/18 07:35 Dose: 1 amp Benzocaine/Menthol (Cepacol Lozenge -) 1 each MM PRN PRN PRN Reason: SORE THROAT Diphenhydramine HCl (Benadryl -) 25 mg PO Q6H PRN PRN Reason: FOR ITCHING Last Admin: 01/14/18 10:23 Dose: 25 mg Enoxaparin Sodium (Lovenox -) 40 mg SQ DAILY [facility] Last Admin: 01/14/18 10:18 Dose: Not Given Fluticasone Propionate (Flonase -) 1 spray NS BID [facility] Last Admin: 01/14/18 10:18 Dose: 1 spray Montelukast Sodium (Singulair -) 10 mg PO HS [facility] Pantoprazole Sodium (Protonix -) 40 mg PO DAILY [facility] Last Admin: 01/14/18 10:18 Dose: 40 mg Prednisone (Deltasone -) 60 mg PO DAILY [facility] IMAGING: -CXR (01/11): Prominent left perihilar markings. Weak inspiration. -CXR (01/12): Since 01/11/2018 again noted are some coarse changes with prominent mediastinum and sharp angles. -CXR (01/13): A single AP view the chest reveals a weak inspiration with prominent mediastinum, central crowding and no sign of an acute process. The bones and soft tissues are intact. -EKG: SINUS TACHYCARDIA, VR 110, QTc 503 ASSESSMENT/PLAN: 32 yo F with PMHx of asthma and seizure disorder presented to [facility] with SOB and was admitted to ICU for acute asthma exacerbation. #Acute Respiratory failure -Likely due to Asthma exacerbation from URI; Less likely viral infection, PNA -Given Xolair injection in the ED -Pulmonology (Dr. Miranda) consulted, appreciate Recs, Epi for worsening of symptoms -Continue Benadryl, Duonebs, Albuterol, Singulair, Brethine, Flonase -IV Solumedrol d/c'ed; Started on PO Prednisone today -Bipap PRN, Supplemental O2 via NC -AFebrile, Without Leukocytosis; No indication for ABx at this time -Peak flow daily -CXR Daily (Noted Above) -Flu Swab noted above; RSV Panel pending #Hx of Seizures -Stable, Last seizure was ~5 years ago -Was on Keppra, stopped on her own over a year ago -Previously followed by Dr. Pizano #FEN -PO Fluids -Lytes WNL -Regular diet #PPx -DVT: Lovenox Dispo: Monitor on Med-surg Visit type - Emergency Visit Emergency Visit: Yes ED Registration Date: 01/11/18 Care time: The patient presented to the Emergency Department on the above date and was hospitalized for further evaluation of their emergent condition. - New Patient This patient is new to me today: No - Critical Care Critical Care patient: No - Discharge Referral Referred to [facility] Med P.C.: No
--- NOTE | 2018-01-14 20:12 | PN ---
Teaching Attending Note Name of Resident: Magdiel Gutierrez ATTENDING PHYSICIAN STATEMENT I saw and evaluated the patient. I reviewed the resident's note and discussed the case with the resident. I agree with the resident's findings and plan as documented. SUBJECTIVE: Patient is feeling better today. OBJECTIVE:Vital Signs Temperature 98.5 F 01/14/18 14:26 Pulse Rate 75 01/14/18 14:26 Respiratory Rate 20 01/14/18 08:51 Blood Pressure 117/70 01/14/18 14:26 O2 Sat by Pulse Oximetry (%) 100 01/14/18 09:00 GENERAL: AAOx3, in mild distress, able to speak in full sentences. HEAD: NCAT; EYES: PERRLA,EOMI, sclera anicteric, conjunctiva clear. EARS, NOSE, THROAT: dry mucous membranes. NECK: Supple, no JVD, or masses. LUNGS: better air entry BL; positive for wheezing bl, off Bipap HEART: RRR, normal S1 and S2 without murmur, rub or gallop. ABDOMEN: Soft, obese, nontender, ND, normoactive bowel sounds, no guarding, no rebound, no masses. MUSCULOSKELETAL: Normal range of motion at all joints. No bony deformities or tenderness. No CVA tenderness. EXTREMITIES: 2+ pulses, warm, well-perfused. No cyanosis. No clubbing. No peripheral edema. NEUROLOGICAL: Cranial nerves II-XII intact. SKIN: Warm, dry, normal turgor, no rashes or lesions noted, normal capillary refill. CBCD WBC 19.4 K/mm3 (4.0-10.0) H 01/14/18 06:30 RBC 4.78 M/mm3 (3.60-5.2) 01/14/18 06:30 Hgb 12.7 GM/dL (10.7-15.3) 01/14/18 06:30 Hct 39.6 % (32.4-45.2) 01/14/18 06:30 MCV 82.9 fl (80-96) 01/14/18 06:30 MCHC 32.0 g/dl (32.0-36.0) 01/14/18 06:30 RDW 14.2 % (11.6-15.6) 01/14/18 06:30 Plt Count K/MM3 (134-434) 01/14/18 06:30 MPV 8.0 fl (7.5-11.1) 01/13/18 05:30 CMP Sodium 136 mmol/L (136-145) 01/14/18 06:30 Potassium 4.3 mmol/L (3.5-5.1) 01/14/18 06:30 Chloride 105 mmol/L (98-107) 01/14/18 06:30 Carbon Dioxide 27 mmol/L (21-32) 01/14/18 06:30 Anion Gap 4 MMOL/L (8-16) L 01/14/18 06:30 BUN 12 mg/dL (7-18) 01/14/18 06:30 Creatinine 0.6 mg/dL (0.55-1.3) 01/14/18 06:30 Creat Clearance w eGFR > 60 (>60) 01/14/18 06:30 Random Glucose 142 mg/dL (74-106) H 01/14/18 06:30 Calcium 8.8 mg/dL (8.5-10.1) 01/14/18 06:30 Total Bilirubin 0.2 mg/dL (0.2-1) 01/14/18 06:30 AST 9 U/L (15-37) L 01/14/18 06:30 ALT 21 U/L (13-61) 01/14/18 06:30 Alkaline Phosphatase 86 U/L (45-117) 01/14/18 06:30 Total Protein 6.7 g/dl (6.4-8.2) 01/14/18 06:30 Albumin 3.3 g/dl (3.4-5.0) L 01/14/18 06:30 Current Medications Generic Name Dose Route Start Last Admin Trade Name Freq PRN Reason Stop Dose Admin Al Hydroxide/Mg Hydroxide 30 ml 01/13/18 22:57 Mylanta Oral Suspension - PO Q6H PRN DYSPEPSIA Albuterol Sulfate 1 amp 01/13/18 22:57 Ventolin 0.083% Nebulizer Soln - NEB Q4H PRN SHORT OF BREATH/WHEEZING Albuterol/Ipratropium 1 amp 01/14/18 08:00 01/14/18 17:00 Duoneb - NEB Not Given RQID [facility] Benzocaine/Menthol 1 each 01/13/18 22:57 Cepacol Lozenge - MM PRN PRN SORE THROAT Diphenhydramine HCl 25 mg 01/13/18 20:40 01/14/18 10:23 Benadryl - PO 25 mg Q6H PRN Administration FOR ITCHING Enoxaparin Sodium 40 mg 01/14/18 10:00 01/14/18 10:18 Lovenox - SQ Not Given DAILY [facility] Fluticasone Propionate 1 spray 01/14/18 10:00 01/14/18 10:18 Flonase - NS 1 spray BID [facility] Administration Montelukast Sodium 10 mg 01/14/18 22:00 Singulair - PO HS [facility] Pantoprazole Sodium 40 mg 01/14/18 10:00 01/14/18 10:18 Protonix - PO 40 mg DAILY [facility] Administration Prednisone 60 mg 01/15/18 10:00 Deltasone - PO DAILY [facility] Home Medications Medication Instructions Recorded Albuterol Sulfate Inhaler - 1 - 2 inh PO Q4H 01/11/18 [Ventolin Hfa Inhaler -] Budesonide/Formeterol Fumarate 1 inh PO BID 01/11/18 [SYMBICORT 80/4.5mcg -] Fluticasone Prop 0.05% Nasal 1 - 2 spray NS DAILY 01/11/18 [Flonase -] Omeprazole 20 mg PO DAILY 01/11/18 Tiotropium [place] [Spiriva 4 gm IH DAILY 01/11/18 Respimat] ASSESSMENT AND PLAN: Patient is a 32 yo F with PMHx of asthma and seizure disorder presents with SOB admitted to ICU for acute asthma exacerbation. # Acute Asthma exacerbation: Patient is doing better today will continue current therapy. # Seizure disorder has stopped keppra a year ago since was not had seizure for 5 years. continue Duoneb, albuterol, Solumedrol 80mg q6h IV switched to 60mg po Prednisone , continue Duoneb, albuterol prn. continue Singulair DVT prophylaxis: lovenox 40 mg SQ discharge patient home in am if stable on prednisone 60mg
[2018-01-14] MEDS ORDERED: CHLORHEXIDINE GLUCONATE 4% CLEANSER FOR DECOLONIZATION TP SCH (22:00)
[2018-01-14] MEDS ORDERED: MONTELUKAST NA 10 MG TABLET PO SCH (22:00)
[2018-01-15] MEDS: ALBUTEROL SO4 2.5/IPRATROPIUM 0.5 INH SOL 3 ML VIAL.NEB. NEB SCH ×2 (09:05)
[2018-01-15] MEDS ORDERED: predniSONE 20 MG TABLET (UD) PO SCH (10:00)
[2018-01-15] MEDS: FLUTICASONE PROP 0.05% 16 GM NASAL SPRAY NS SCH (10:18)
[2018-01-15] MEDS: PANTOPRAZOLE 40 MG TABLET (FP) PO SCH (10:19)
[2018-01-15] MEDS: ENOXAPARIN NA (PORCINE) 40 MG/0.4 ML DISP.SYRIN SQ SCH (10:19)
[2018-01-15 13:03] VITALS: BP 121/72; PULSE 106; TEMP 98.1
--- NOTE | 2018-01-15 14:09 | PN ---
Teaching Attending Note Name of Resident: Layla Gutierrez ATTENDING PHYSICIAN STATEMENT I saw and evaluated the patient. I reviewed the resident's note and discussed the case with the resident. I agree with the resident's findings and plan as documented. SUBJECTIVE: no SOB , minimal wheezing, she feels at her base line OBJ: NAD Cv : RRR Lungs: minimal b/l wheezing . good air entry ext : no edema ASSESSMENT AND PLAN: 32 y/o lady with h/o asthma, and seizures who presented with SOB and was found to have acute hypoxic resp failure due to asthma exacerbation 1- Acute hypoxic resp failure , resolved 2- Asthma exacerbatio improved 3- h/o seizure plan : - taper po steorids - f/u with her pulm - f/u with neuro - cont inhalers dispo : Dc home
--- NOTE | 2018-01-15 14:32 | DS ---
Physical Exam: SUBJECTIVE: Patient seen and examined OBJECTIVE: Vital Signs Period Temp Pulse Resp BP Sys/Lawson Pulse Ox Last 24 Hr 98.1 F-98.9 F 74-106 18-20 110-121/66-75 95-98 PHYSICAL EXAM GENERAL: The patient is awake, alert, and fully oriented, in no acute distress. HEAD: Normal with no signs of trauma. EYES: PERRL, extraocular movements intact, sclera anicteric, conjunctiva clear. ENT: Ears normal, nares patent, oropharynx clear without exudates, moist mucous membranes. NECK: Trachea midline, full range of motion, supple. LUNGS: Breath sounds equal, clear to auscultation bilaterally, no wheezes, no crackles, no accessory muscle use. HEART: Regular rate and rhythm, S1, S2 without murmur, rub or gallop. ABDOMEN: Soft, nontender, nondistended, normoactive bowel sounds, no guarding, no rebound, no hepatosplenomegaly, no masses. EXTREMITIES: 2+ pulses, warm, well-perfused, no edema. NEUROLOGICAL: Cranial nerves II through XII grossly intact. Normal speech, gait not observed. PSYCH: Normal mood, normal affect. SKIN: Warm, dry, normal turgor, no rashes or lesions noted. LABS HOSPITAL COURSE: Date of Admission:01/11/18 Date of Discharge: 01/15/18 Discharge Summary Reason For Visit: EXCERBATION OF ASTHMA Condition: Improved - Instructions Diet, Activity, Other Instructions: You presented to the hospital with shortness of breath and were found to be in Asthma exacerbation. You were monitored in the ICU and your breathing improved. Physician Follow ups 1. PCP: In one week, please call to schedule follow up 2. Pulmonology: Dr. Costa in one week to further manage your Asthma 3. Automotive Mechanical Engineer: Dr. Roman in one week to further manage your Xolair injections 4. Neurology: Dr. Pizano in two weeks to further manage your seizures Please continue all other medications as prescribed. Please return to the ER if you have any signs or symptoms of chest pain, shortness of breath, uncontrollable fever, chills, nausea, vomiting, numbness, tingling, or weakness in any part of your body, changes in vision, or slurred speech. Please return to the ER if symptoms persist, worsen, or new symptoms arise. Referrals: Nate Costa [Other] - 1 Week Bird Pizano DO [Staff Physician] - 2 Weeks Hira Powers MD [Primary Care Provider] - 1 Week Audrey Roman [Other] - 1 Week Disposition: HOME - Home Medications Comprehensive Discharge Medication List: Ambulatory Orders Albuterol Sulfate Inhaler - [Ventolin Hfa Inhaler -] 1 - 2 inh PO Q4H 01/11/18 Budesonide/Formeterol Fumarate [SYMBICORT 80/4.5mcg -] 1 inh PO BID 01/11/18 Fluticasone Prop 0.05% Nasal [Flonase -] 1 - 2 spray NS DAILY 01/11/18 Omeprazole 20 mg PO DAILY 01/11/18 Tiotropium [place] [Spiriva Respimat] 4 gm IH DAILY 01/11/18 Mag Hydrox/Al Hydrox/Simeth [Mylanta Oral Suspension -] 30 ml PO Q6H PRN #1 cup 01/15/18 Prednisone See Taper PO DAILY #51 tablet 01/15/18 - Discharge Referral Referred to [facility] No
== END 2018-01-15 13:56 | disposition home or self-care (01) | DRG 189 ==
LOC: JER 22:06 → JICU 01-11 01:43 → J6S 01-13 23:00
PROVIDERS: ADMIT Internal Medicine; ATTEND Internal Medicine
DX: J96.00 Acute respiratory failure, unspecified whether with hypoxia or hypercapnia (principal); J45.52 Severe persistent asthma with status asthmaticus; R00.0 Tachycardia, unspecified; G40.909 Epilepsy, unspecified, not intractable, without status epilepticus; E66.9 Obesity, unspecified; Z68.34 Body mass index [BMI] 34.0-34.9, adult; Z88.0 Allergy status to penicillin
CPT/HCPCS: 36415; 36600; 71045-TC-FY; 80048; 80053; 82803; 83735; 84100; 84702; 85025; 85027; 85610; 85730; 87420; 87633; 87804; 93005; 93010; 94150; 94640; 94660; 97116-GP; 97161-GP; 99284-25